=== PATIENT | female | born 1980 | race Caucasian/White ===

== ENCOUNTER 2017-07-19 15:18 | Emergency (ER) | payer OTHER, MEDICAID ==
[2017-07-19 15:57] LABS: ADD MAN DIFF? NO
[2017-07-19 15:59] LABS: BASO # 0.1 x10^3/uL (0.0-0.2); BASO % 1 % (0-3); EOS # 0.3 x10^3/uL (0.0-0.7); EOS % 3 % (0-3); HEMATOCRIT 42.6 % (36.0-47.0); HEMOGLOBIN 14.1 g/dL (12.0-15.5); LYMPH # 3.6 x10^3/uL (1.0-4.8); LYMPH % 33 % (24-48); MEAN CORPUSCULAR HEMOGLOBIN 29 pg (25-35); MEAN CORPUSCULAR HGB CONC 33 g/dL (31-37); MEAN CORPUSCULAR VOLUME 88 fL (79-100); MONO # 0.9 x10^3/uL (0.0-1.1); MONO % 9 % (0-9); NEUT # 5.9 x10^3uL (1.8-7.7); NEUT % 55 % (31-73); PLATELET COUNT 337 x10^3/uL (140-400); RED BLOOD COUNT 4.85 x10^6/uL (3.50-5.40); RED CELL DISTRIBUTION WIDTH 14.1 % (11.5-14.5); WHITE BLOOD COUNT 10.9 x10^3/uL (4.0-11.0)
[2017-07-19] MEDS: fentaNYL PF VIAL 100 MCG/2 ML VIAL IV ×2 (16:09)
[2017-07-19] MEDS: ONDANSETRON PF 4 MG/2 ML VIAL. IV ×2 (16:09)
[2017-07-19] MEDS: ASPIRIN CHEWABLE 81 MG TABLET. PO ×2 (16:10)
[2017-07-19 16:13] LABS: ANION GAP 6 (6-14); BLOOD UREA NITROGEN 5 mg/dL (7-20); BUN/CREATININE RATIO 7 (6-20); CALCIUM 8.7 mg/dL (8.5-10.1); CARBON DIOXIDE 30 mmol/L (21-32); CHLORIDE 103 mmol/L (98-107); CREATININE 0.7 mg/dL (0.6-1.0); GFR 93.2; GLUCOSE 108 mg/dL (70-99); POTASSIUM 3.8 mmol/L (3.5-5.1); SODIUM 139 mmol/L (136-145)
[2017-07-19 16:19] LABS: ALBUMIN/GLOBULIN RATIO 0.7 (1.0-1.7); ALK PHOS 84 U/L (46-116); ALT (SGPT) 35 U/L (14-59); AST (SGOT) 36 U/L (15-37); MAGNESIUM 1.9 mg/dL (1.8-2.4); TOTAL BILIRUBIN 0.2 mg/dL (0.2-1.0); TOTAL PROTEIN 7.4 g/dL (6.4-8.2)
[2017-07-19] MEDS: IV NORMAL SALINE 1000ML BAG 1,000 ML IV ×2 (16:22)
[2017-07-19 16:25] LABS: TROPONINI < 0.017 ng/mL (0.000-0.055)
[2017-07-19 16:26] LABS: BILIRUBIN,URINE NEGATIVE (NEG); CLARITY,URINE CLOUDY; COLOR,URINE YELLOW; GLUCOSE,URINE NEGATIVE (NEG); NITRITE,URINE NEGATIVE (NEG); PH,URINE 5.5; PROTEIN,URINE NEGATIVE (NEG-TRACE); UROBILINOGEN,URINE 0.2 mg/dL (0.2 mg/dL)
[2017-07-19 16:27] LABS: NT-PRO BNP 22 pg/mL (0-124)
[2017-07-19 16:27] LABS: CKMB MASS < 0.5 ng/mL (0.0-3.6); CREATINE KINASE 48 U/L (26-192)
[2017-07-19 16:37] LABS: BACTERIA,URINE FEW /HPF (0-FEW); RBC,URINE 0 /HPF (0-2); SQUAMOUS EPITHELIAL CELL,UR MANY /LPF
[2017-07-19 17:10] LABS: URINE HCG POC HCG NEGATIVE (Negative)
== END 2017-07-19 17:48 | disposition home or self-care (01) ==
LOC: ER 15:18
DX: R07.89 Other chest pain (principal); R10.9 Unspecified abdominal pain; M54.89 Other dorsalgia; I10 Essential (primary) hypertension; E11.9 Type 2 diabetes mellitus without complications; J45.909 Unspecified asthma, uncomplicated; M10.9 Gout, unspecified; Z90.49 Acquired absence of other specified parts of digestive tract; Z79.82 Long term (current) use of aspirin; Z88.5 Allergy status to narcotic agent; Z91.040 Latex allergy status
CPT/HCPCS: 36415; 71046; 80053; 81001; 81025; 82553; 83735; 83880; 84484; 85025; 87086; 87186; 93005; 96361; 96374; 96375; 99285-25; J2405; J3010; J7030

== ENCOUNTER 2018-07-18 19:48 | Emergency (ER) | payer OTHER ==
[~2018-07-18] VITALS: Ht 167.6 cm; Wt 182.3 kg
[~2018-07-18 19:48] MED LIST: ALBU2.5V5 NEB; ALLO100T PO; ASPI-630 PO; CHOL10002 PO; CIPR500T PO; CYCL10TA2 PO; HYDR-2678 PO; HYDR-2769 PO; IBUP-1007 PO; INDO25CA5 PO; LISI-334 PO; METF10007 PO; METO25TA4 PO; NAPR-683 PO
--- NOTE | 2018-07-18 20:14 | PHYS DOC ---
Past Medical History Past Medical History: Asthma, Diabetes-Type II, Hypertension, Other Additional Past Medical Histor: Gout (EUNICE ROSARIO APRN) Past Surgical History: Cholecystectomy (EUNICE ROSARIO APRN) Alcohol Use: None Drug Use: None (EUNICE ROSARIO APRN) Adult General Chief Complaint Chief Complaint: CHEST WALL PAIN HPI HPI 38 y/o female presents to ER via EMS for c/o 5 days hx of N/V and 2 day hx of lt side CP. She reports today she has vomited 4 times. She denies diarrhea reporting she had reg. BM today. She denies fever, urinary sxs, or palpitations. Pt reports her chest pain radiates into lt arm causing lt arm tingling. She denies SOA, diaphoresis, or back/neck pain. (EUNICE ROSARIO APRN) Review of Systems Review of Systems Constitutional: Denies fever or chills [] Eyes: Denies change in visual acuity, redness, or eye pain [] HENT: Denies nasal congestion or sore throat [] Respiratory: Denies cough or shortness of breath [] Cardiovascular: Reports lt side CP into lt arm GI: Denies abdominal pain. Reports N/V/D : Denies dysuria or hematuria [] Musculoskeletal: Denies back/neck pain. Reports lt arm tingling Integument: Denies rash or skin lesions [] Neurologic: Denies headache, focal weakness or sensory changes [] Endocrine: Denies polyuria or polydipsia [] All other systems were reviewed and found to be within normal limits, except as documented in this note. (EUNICE ROSARIO APRN) Current Medications Current Medications Current Medications Medications (Trade) Dose Ordered Sig/Jalyn Start Time Stop Time Status Last Admin Dose Admin Ondansetron HCl (Zofran) 4 mg 1X ONCE 07/18/18 20:15 07/18/18 20:16 DC 07/18/18 20:40 4 MG Sodium Chloride 1,000 ml @ 1,000 mls/hr 1X ONCE 07/18/18 20:15 07/18/18 21:14 DC 07/18/18 20:40 1,000 MLS/HR (TAQUERIA PATEL MD) Allergies Allergies Allergies Coded Allergies Type Severity Reaction Last Updated Verified Latex, Natural Rubber Allergy Intermediate Rash 04/03/16 Yes oxycodone Allergy Intermediate Hives 04/03/16 Yes (TAQUERIA PATEL MD) Physical Exam Physical Exam Constitutional: Well developed, well nourished, no acute distress, non-toxic appearance. Steady unassisted gait from EMS to Rm 17 HENT: Normocephalic, atraumatic, oropharynx moist, nose normal. [] Eyes: Pupils equal, conjunctiva normal, no discharge. [] Neck: Normal range of motion, no tenderness, supple, no stridor. [] Cardiovascular: Heart rate regular rhythm, no murmur [] Lungs & Thorax: Bilateral breath sounds clear to auscultation. Resp. equal/ nonlabored. Lt upper chest pain is reproducible on palp. no crepitus Abdomen: Bowel sounds normal, soft- obese, no tenderness Skin: Warm, dry, no erythema, no rash. [] Back: No tenderness, no CVA tenderness. [] Extremities: No tenderness, no cyanosis, no clubbing, ROM intact, 1-2+ nonpitting bilat. pedal edema Neurologic: Alert and oriented X 3, normal motor function, normal sensory function, no focal deficits noted. [] Psychologic: Affect normal, judgement normal, mood normal. [] (REFFITT,EUNICE Freeman APRN) Current Patient Data Lab Values Laboratory Tests Test 07/18/18 20:10 07/18/18 21:05 07/18/18 21:11 White Blood Count 11.1 x10^3/uL (4.0-11.0) H Red Blood Count 4.62 x10^6/uL (3.50-5.40) Hemoglobin 12.9 g/dL (12.0-15.5) Hematocrit 39.6 % (36.0-47.0) Mean Corpuscular Volume 86 fL (79-100) Mean Corpuscular Hemoglobin 28 pg (25-35) Mean Corpuscular Hemoglobin Concent 32 g/dL (31-37) Red Cell Distribution Width 13.6 % (11.5-14.5) Platelet Count 317 x10^3/uL (140-400) Neutrophils (%) (Auto) 54 % (31-73) Lymphocytes (%) (Auto) 35 % (24-48) Monocytes (%) (Auto) 8 % (0-9) Eosinophils (%) (Auto) 2 % (0-3) Basophils (%) (Auto) 1 % (0-3) Neutrophils # (Auto) 6.0 x10^3uL (1.8-7.7) Lymphocytes # (Auto) 3.9 x10^3/uL (1.0-4.8) Monocytes # (Auto) 0.9 x10^3/uL (0.0-1.1) Eosinophils # (Auto) 0.2 x10^3/uL (0.0-0.7) Basophils # (Auto) 0.1 x10^3/uL (0.0-0.2) Sodium Level 143 mmol/L (136-145) Potassium Level 4.5 mmol/L (3.5-5.1) Chloride Level 107 mmol/L (98-107) Carbon Dioxide Level 29 mmol/L (21-32) Anion Gap 7 (6-14) Blood Urea Nitrogen 7 mg/dL (7-20) Creatinine 0.8 mg/dL (0.6-1.0) Estimated GFR (Cockcroft-Gault) 79.4 BUN/Creatinine Ratio 9 (6-20) Glucose Level 118 mg/dL (70-99) H Calcium Level 8.2 mg/dL (8.5-10.1) L Magnesium Level 2.0 mg/dL (1.8-2.4) Total Bilirubin 0.2 mg/dL (0.2-1.0) Aspartate Amino Transferase (AST) 15 U/L (15-37) Alanine Aminotransferase (ALT) 19 U/L (14-59) Alkaline Phosphatase 110 U/L (46-116) Troponin I Quantitative 0.019 ng/mL (0.000-0.055) Total Protein 6.8 g/dL (6.4-8.2) Albumin 2.7 g/dL (3.4-5.0) L Albumin/Globulin Ratio 0.7 (1.0-1.7) L Lipase 165 U/L (73-393) Urine Collection Type Unknown Urine Color Yellow Urine Clarity Clear Urine pH 6.0 Urine Specific [place] 1.010 Urine Protein Negative mg/dL (NEG-TRACE) Urine Glucose (UA) Negative mg/dL (NEG) Urine Ketones (Stick) Negative mg/dL (NEG) Urine Blood Negative (NEG) Urine Nitrite Positive (NEG) Urine Bilirubin Negative (NEG) Urine Urobilinogen Dipstick 0.2 mg/dL (0.2 mg/dL) Urine Leukocyte Esterase Negative (NEG) Urine RBC 0 /HPF (0-2) Urine WBC 5-10 /HPF (0-4) Urine Squamous Epithelial Cells Few /LPF Urine Bacteria Many /HPF (0-FEW) Urine Mucus Slight /LPF POC Urine HCG, Qualitative Hcg negative (Negative) Laboratory Tests 07/18/18 20:10 Laboratory Tests 07/18/18 20:10 Microbiology 07/18/18 Urine Culture - Final, Complete 07/18/18 Urine Culture Result 1 (MICHELET) - Final, Complete 07/18/18 Antimicrobic Susceptibility - Final, Complete (TAQUERIA PATEL MD) Lab Values Microbiology 07/18/18 Urine Culture - Final, Complete 07/18/18 Urine Culture Result 1 (MICHELET) - Final, Complete 07/18/18 Antimicrobic Susceptibility - Final, Complete (EUNICE ROSARIO APRN) EKG EKG EKG obtained 07/18/18 at [address] Patel Sinus rhythm Rate 92 No STEMI (EUNICE ROSARIO APRN) Radiology/Procedures Radiology/Procedures [] (EUNICE ROSARIO APRN) Course & Med Decision Making Course & Med Decision Making Pertinent Labs and Imaging studies reviewed. (See chart for details) 2134: Discussed pt's case and plan of care with Dr. Patel who viewed pt's xray- no obvious acute findings. Pt's heart score is 2- with risk factors. Pt reported her CP has been going on for 2 days. EKG obtained in ER today with no acute ST elevation/STEMI and troponin was 0.019; Labs were similar to previous results in pt's records Ca 8.2 which in her records this appears to be chronic. Neg. UCG. UA was positive nitrates with 5-10 WBCs on micro neg. ketones. Will provide Rx for Keflex. Pt has had no active vomiting while in ER and was provided with IV flds/dose of Zofran. Discussed plans for home discharge with pt to f/u with her PCP tomorrow for re-evaluation and further care. Will provide with Rx of Zofran ODT. At time of discharge discussion pt was in no visible distress and is comfortable with discharge plan. (EUNICE ROSARIO APRN) Course & Med Decision Making Staff Physician Addendum: I was working in the ER during the course of this patient's visit. I was available for consultation as needed, but I was not directly involved in the care of this patient. (TAQUERIA PATEL MD) Dragon Disclaimer Dragon Disclaimer This electronic medical record was generated, in whole or in part, using a voice recognition dictation system. (EUNICE ROSARIO APRN) Departure Departure Impression: Primary Impression: Chest pain Additional Impression: UTI (urinary tract infection) Disposition: HOME, SELF-CARE Condition: STABLE Referrals: IGOR HAMPTON MD (PCP) Patient Instructions: Chest Pain (Nonspecific), Nausea and Vomiting, Urinary Tract Infection Additional Instructions: Drink plenty of fluids to stay hydrated. Tylenol and or ibuprofen as needed for pain as directed on container. Follow-up with your doctor tomorrow for re-evaluation and further care. Scripts Ondansetron (ONDANSETRON ODT) 4 Mg Tab.rapdis 1 TAB PO PRN Q6-8HRS PRN for NAUSEA, #8 TAB 0 Refills Prov: EUNICE ROSARIO APRN 07/18/18 Cephalexin (KEFLEX) 500 Mg Capsule 1 CAP PO BID, #14 CAP 0 Refills Prov: EUNICE ROSARIO APRN 07/18/18 Problem Qualifiers EUNICE ROSARIO APRN Jul 18, 2018 20:14 TAQUERIA PATEL MD Sep 19, 2018 05:49
[2018-07-18] MEDS ORDERED: IV NORMAL SALINE 1000ML BAG 1,000 ML IV ONE (20:15)
[2018-07-18] MEDS ORDERED: ONDANSETRON PF 4 MG/2 ML VIAL. IV ONE (20:15)
[2018-07-18 20:23] LABS: BASO # 0.1 x10^3/uL (0.0-0.2); BASO % 1 % (0-3); EOS # 0.2 x10^3/uL (0.0-0.7); EOS % 2 % (0-3); HEMATOCRIT 39.6 % (36.0-47.0); HEMOGLOBIN 12.9 g/dL (12.0-15.5); LYMPH # 3.9 x10^3/uL (1.0-4.8); LYMPH % 35 % (24-48); MEAN CORPUSCULAR HEMOGLOBIN 28 pg (25-35); MEAN CORPUSCULAR HGB CONC 32 g/dL (31-37); MEAN CORPUSCULAR VOLUME 86 fL (79-100); MONO # 0.9 x10^3/uL (0.0-1.1); MONO % 8 % (0-9); NEUT % 54 % (31-73); PLATELET COUNT 317 x10^3/uL (140-400); RED BLOOD COUNT 4.62 x10^6/uL (3.50-5.40); RED CELL DISTRIBUTION WIDTH 13.6 % (11.5-14.5); WHITE BLOOD COUNT 11.1 x10^3/uL (4.0-11.0)
[2018-07-18 20:31] LABS: CALCIUM 8.2 mg/dL (8.5-10.1); CREATININE 0.8 mg/dL (0.6-1.0); GFR 79.4; POTASSIUM 4.5 mmol/L (3.5-5.1)
[2018-07-18 20:37] LABS: ALBUMIN 2.7 g/dL (3.4-5.0); ALBUMIN/GLOBULIN RATIO 0.7 (1.0-1.7); TOTAL BILIRUBIN 0.2 mg/dL (0.2-1.0); TOTAL PROTEIN 6.8 g/dL (6.4-8.2)
[2018-07-18 21:07] VITALS: BP 107/54
[2018-07-18 21:16] LABS: BILIRUBIN,URINE NEGATIVE (NEG); CLARITY,URINE CLEAR; COLOR,URINE YELLOW; NITRITE,URINE POSITIVE (NEG); PROTEIN,URINE NEGATIVE (NEG-TRACE); UROBILINOGEN,URINE 0.2 mg/dL (0.2 mg/dL)
[2018-07-18 21:27] LABS: BACTERIA,URINE MANY /HPF (0-FEW); RBC,URINE 0 /HPF (0-2); SQUAMOUS EPITHELIAL CELL,UR FEW /LPF
[2018-07-18] MEDS ORDERED: ONDA4TAB12 PO (21:45)
[2018-07-18] MEDS ORDERED: CEPH-264 PO (21:45)
--- NOTE | 2018-07-18 23:18 | RAD ---
PA and lateral chest radiographs 07/18/2018 CLINICAL HISTORY: Left-sided chest pain. PA and lateral digital radiographs of the chest were obtained. Comparison study is dated 07/19/2017. The cardiac and mediastinal silhouettes are within normal limits in size and configuration. No acute pulmonary infiltrate is seen. No pleural effusion or pneumothorax is noted. Mild degenerative changes are seen involving the thoracic spine. IMPRESSION: No acute abnormality is seen. Electronically signed by: Vipin Del Rosario MD (07/18/2018 11:15 PM) [facility]
--- NOTE | 2018-07-19 08:12 | EKG ---
[facility] [address] [place] [address] Test Date: 2018-07-18 Test Time: 19:53:10 Pat Name: CARINE DELACRUZ Department: Room: Gender: Sales Administration Manager: : 1980 Requested By: EUNICE ROSARIO Order Number: [id number] Reading MD: Pratik Meza Measurements Intervals [place] Rate: P: ME: QRS: QRSD: T: QT: QTc: Interpretive Statements Compared to ECG 07/19/2017 15:30:38 No significant changes Electronically Signed On 07-20-2018 9:09:40 BUSINESS REPORTING DEVELOPER by Pratik Meza
== END 2018-07-18 22:06 | disposition home or self-care (01) ==
LOC: ER 19:48
DX: R07.89 Other chest pain (principal); N39.0 Urinary tract infection, site not specified; J45.909 Unspecified asthma, uncomplicated; E11.9 Type 2 diabetes mellitus without complications; I10 Essential (primary) hypertension; R19.7 Diarrhea, unspecified; Z91.040 Latex allergy status; Z88.5 Allergy status to narcotic agent
CPT/HCPCS: 36415; 71046; 80053; 81001; 81025; 83690; 83735; 84484; 85025; 87086; 93005; 96361; 96374; 99284; J2405; J7030; 87186

== ENCOUNTER 2019-04-03 08:28 | Inpatient (IN) | payer OTHER ==
[~2019-04-03] VITALS: Ht 167.6 cm; Wt 173.0 kg
[~2019-04-03 08:28] MED LIST changes: +CEPH-264 PO; +INDO25CA21 PO; -INDO25CA5 PO; +ONDA4TAB12 PO
[2019-04-03] MEDS ORDERED: IV NORMAL SALINE 1000ML BAG 1,000 ML IV SCH (08:52)
--- NOTE | 2019-04-03 08:57 | PHYS DOC ---
Past Medical History Past Medical History: Asthma, Diabetes-Type II, Hypertension, Other Additional Past Medical Histor: Gout, obesity Past Surgical History: Cholecystectomy Alcohol Use: None Drug Use: None Adult General Chief Complaint Chief Complaint: DIFFICULTY SWALLOWING HPI HPI Patient is a 39-year-old female who presents to the emergency department for evaluation. She was seen at a [facility] 2 days ago for right-sided face/"dental" pain, underwent a physical exam, and was prescribed amoxicillin 450 mg 3 times a day. She states that for the past 2 days she has been unable to swallow because doing so causes increased pain. She describes the pain is the right side of her face and neck area. She has had a low-grade fever. She denies any headache or neck stiffness per se, and has not had any abdominal pain, chest pain, diarrhea, vision changes or mental status changes, numbness, weakness. Palpation of the right side of her face, movement of her neck, and swallowing worsen her pain. There are no alleviating factors to her symptoms. Review of Systems Review of Systems Constitutional: Denies lethargy or chills [] Eyes: Denies change in visual acuity, redness, or eye pain [] HENT: Denies nasal congestion or sore throat. Does report some right-sided neck pain. [] Respiratory: Denies cough or shortness of breath [] Cardiovascular: The patient denies any shortness of breath, chest pain, palpitations, or orthopnea [] GI: Denies abdominal pain, bloody stools or diarrhea [] : Denies dysuria or hematuria [] Musculoskeletal: Denies back pain or joint pain [] Integument: Denies rash or skin lesions [] Neurologic: Denies headache, focal weakness or sensory changes [] Endocrine: Denies polyuria or polydipsia [] All other systems were reviewed and found to be within normal limits, except as documented in this note. Current Medications Current Medications Current Medications Medications (Trade) Dose Ordered Sig/Jalyn Start Time Stop Time Status Last Admin Dose Admin Info (CONTRAST GIVEN -- Rx MONITORING) 1 each PRN DAILY PRN 04/03/19 09:30 04/05/19 09:29 Iohexol (Omnipaque 300 Mg/ml) 70 ml 1X ONCE 04/03/19 09:30 04/03/19 09:31 DC 04/03/19 09:30 70 ML Sodium Chloride 1,000 ml @ 100 mls/hr Q10H 04/03/19 08:52 04/03/19 18:51 04/03/19 10:20 100 MLS/HR Allergies Allergies Allergies Coded Allergies Type Severity Reaction Last Updated Verified Latex, Natural Rubber Allergy Intermediate Rash 04/03/16 Yes oxycodone Allergy Intermediate Hives 04/03/16 Yes Physical Exam Physical Exam PHYSICAL EXAM: CONSTITUTIONAL: Well developed, well nourished HEAD: normocephalic, atraumatic EENT: PERRL, EOMI. Conjunctivae normal color, sclerae non-icteric; moist mucous membranes. The oropharynx is nonerythematous, there is no uvular deviation or exudate. Dentition is intact. There is no trismus. NECK: There is an approximately 6 x 6 cm firm, tender mass in the right submandibular/superior neck soft tissues, which is the focus of the patient's pain. The anterior larynx is nontender. There is no stridor. Voice is normal. LUNGS: Lungs CTA, breathing even and unlabored. Normal air movement. HEART: Regular rate and rhythm, no murmur CHEST: No deformity; non-tender ABDOMEN: The abdomen is soft, and non-tender, no masses or bruits. EXTREM: Normal ROM; no deformity, no calf tenderness. Normal pulses palpable in all extremities. There is no pedal edema. SKIN: No rash; no diaphoresis NEURO: Alert; normal speech and cognition; CN's grossly intact; strength grossly intact without focal deficit. BACK: No CVA TTP. Current Patient Data Vital Signs Vital Signs Date Time Temp Pulse Resp B/P (MAP) Pulse Ox O2 Delivery O2 Flow Rate FiO2 04/03/19 08:40 99.2 106 18 136/72 (93) 96 Room Air 99.2 Lab Values Laboratory Tests Test 04/03/19 08:58 White Blood Count 9.7 x10^3/uL (4.0-11.0) Red Blood Count 4.88 x10^6/uL (3.50-5.40) Hemoglobin 13.9 g/dL (12.0-15.5) Hematocrit 42.0 % (36.0-47.0) Mean Corpuscular Volume 86 fL (79-100) Mean Corpuscular Hemoglobin 29 pg (25-35) Mean Corpuscular Hemoglobin Concent 33 g/dL (31-37) Red Cell Distribution Width 13.5 % (11.5-14.5) Platelet Count 310 x10^3/uL (140-400) Neutrophils (%) (Auto) 58 % (31-73) Lymphocytes (%) (Auto) 24 % (24-48) Monocytes (%) (Auto) 15 % (0-9) H Eosinophils (%) (Auto) 2 % (0-3) Basophils (%) (Auto) 1 % (0-3) Neutrophils # (Auto) 5.7 x10^3/uL (1.8-7.7) Lymphocytes # (Auto) 2.3 x10^3/uL (1.0-4.8) Monocytes # (Auto) 1.5 x10^3/uL (0.0-1.1) H Eosinophils # (Auto) 0.2 x10^3/uL (0.0-0.7) Basophils # (Auto) 0.1 x10^3/uL (0.0-0.2) Sodium Level 138 mmol/L (136-145) Potassium Level 3.9 mmol/L (3.5-5.1) Chloride Level 102 mmol/L (98-107) Carbon Dioxide Level 27 mmol/L (21-32) Anion Gap 9 (6-14) Blood Urea Nitrogen 8 mg/dL (7-20) Creatinine 0.8 mg/dL (0.6-1.0) Estimated GFR (Cockcroft-Gault) 79.0 BUN/Creatinine Ratio 10 (6-20) Glucose Level 112 mg/dL (70-99) H Lactic Acid Level 1.3 mmol/L (0.4-2.0) Calcium Level 8.3 mg/dL (8.5-10.1) L Total Bilirubin 0.6 mg/dL (0.2-1.0) Aspartate Amino Transferase (AST) 22 U/L (15-37) Alanine Aminotransferase (ALT) 20 U/L (14-59) Alkaline Phosphatase 112 U/L (46-116) Total Protein 8.0 g/dL (6.4-8.2) Albumin 2.8 g/dL (3.4-5.0) L Albumin/Globulin Ratio 0.5 (1.0-1.7) L Laboratory Tests 04/03/19 08:58 Laboratory Tests 04/03/19 08:58 EKG EKG [] Radiology/Procedures Radiology/Procedures PROCEDURE: CT SOFT TISSUE NECK W/CONTRAST CT scan of the neck with contrast 09/17/2018 CLINICAL HISTORY: Fever, sore throat, difficulty swallowing. Painful right neck mass. TECHNIQUE: After the intravenous administration of 70 cc of Omnipaque 300, contiguous, 3 mm axial sections were obtained through the neck. One or more of the following individualized dose reduction techniques were utilized for this study: 1. Automated exposure control. 2. Adjustment of the mA and/or kV according to patient size. 3. Use of iterative reconstruction technique. FINDINGS: The palatine and adenoid tonsils are enlarged. Diffuse mucosal thickening of the mucosal structures of the posterior oropharynx and hypopharynx are seen consistent with the patient's history of a pharyngitis. Enlarged lymph nodes are seen throughout the neck, right greater than left. These measure 1 to 2 cm in size. An oval-shaped mass is seen within the right neck immediately anterior to the right internal jugular vein, lateral to the right internal carotid artery, posterior to the right submandibular gland and medial to the right sternocleidomastoid muscle which measures 7.2 x 3.7 x 2.8 cm in craniocaudal, AP and transverse dimensions. This is felt to most likely represent a conglomerate matted mass of lymph nodes. Low-attenuation areas are seen within this mass which measure 9 mm to 2 cm in size which are felt to represent areas of abscess formation. No additional mass is seen. Edema is seen throughout the soft tissues of the right neck. The parotid glands are enlarged fatty replaced. The submandibular glands are within normal limits. The thyroid gland is within normal limits. Mild mucosal thickening is seen involving both maxillary sinuses. A 1.8 cm mucous retention cyst is seen involving left maxillary sinus. Degenerative changes are seen involving the uncovertebral and facet joints throughout the mid and lower cervical disc spaces. IMPRESSION: 7.2 cm oval-shaped mass is seen within the right neck which is felt to most likely represent a conglomerate matted mass of lymph nodes consistent with cervical adenitis. Low-attenuation areas are seen within it which likely represent small abscesses as discussed above.[] Course & Med Decision Making Course & Med Decision Making Pertinent Labs and Imaging studies reviewed. (See chart for details) [] The patient's condition remains stable at this time. I spoke with Dr. Chahal, hospitalist, who will admit the patient for further treatment, with IV antibiotics, as the patient has not been tolerant to by mouth antibiotics. I have also paged Dr. Adrianna Arshad, who is listed as on-call for ENT. Dragon Disclaimer Dragon Disclaimer This electronic medical record was generated, in whole or in part, using a voice recognition dictation system. Departure Departure Impression: Primary Impression: Neck abscess Additional Impression: Lymphadenopathy Disposition: 09 ADMITTED INPATIENT Admitting Physician: STEPHANI Condition: STABLE Referrals: IGOR HAMPTON MD (PCP) Problem Qualifiers JAMES HYMAN MD Apr 03, 2019 08:57
[2019-04-03 09:23] LABS: BASO # 0.1 x10^3/uL (0.0-0.2); BASO % 1 % (0-3); EOS # 0.2 x10^3/uL (0.0-0.7); EOS % 2 % (0-3); HEMOGLOBIN 13.9 g/dL (12.0-15.5); LYMPH # 2.3 x10^3/uL (1.0-4.8); LYMPH % 24 % (24-48); MEAN CORPUSCULAR HEMOGLOBIN 29 pg (25-35); MEAN CORPUSCULAR HGB CONC 33 g/dL (31-37); MEAN CORPUSCULAR VOLUME 86 fL (79-100); MONO # 1.5 x10^3/uL (0.0-1.1); MONO % 15 % (0-9); NEUT # 5.7 x10^3/uL (1.8-7.7); NEUT % 58 % (31-73); PLATELET COUNT 310 x10^3/uL (140-400); RED BLOOD COUNT 4.88 x10^6/uL (3.50-5.40); RED CELL DISTRIBUTION WIDTH 13.5 % (11.5-14.5); WHITE BLOOD COUNT 9.7 x10^3/uL (4.0-11.0)
[2019-04-03] MEDS ORDERED: CONTRAST GIVEN. MC PRN (09:30)
[2019-04-03] MEDS ORDERED: IOHEXOL 300 MG/ML 100ML VIAL. IV ONE (09:30)
[2019-04-03 09:38] LABS: CALCIUM 8.3 mg/dL (8.5-10.1); CREATININE 0.8 mg/dL (0.6-1.0); POTASSIUM 3.9 mmol/L (3.5-5.1)
[2019-04-03 09:46] LABS: ALBUMIN 2.8 g/dL (3.4-5.0); ALBUMIN/GLOBULIN RATIO 0.5 (1.0-1.7); TOTAL BILIRUBIN 0.6 mg/dL (0.2-1.0)
--- NOTE | 2019-04-03 10:43 | RAD ---
CT scan of the neck with contrast 09/17/2018 CLINICAL HISTORY: Fever, sore throat, difficulty swallowing. Painful right neck mass. TECHNIQUE: After the intravenous administration of 70 cc of Omnipaque 300, contiguous, 3 mm axial sections were obtained through the neck. One or more of the following individualized dose reduction techniques were utilized for this study: 1. Automated exposure control. 2. Adjustment of the mA and/or kV according to patient size. 3. Use of iterative reconstruction technique. FINDINGS: The palatine and adenoid tonsils are enlarged. Diffuse mucosal thickening of the mucosal structures of the posterior oropharynx and hypopharynx are seen consistent with the patient's history of a pharyngitis. Enlarged lymph nodes are seen throughout the neck, right greater than left. These measure 1 to 2 cm in size. An oval-shaped mass is seen within the right neck immediately anterior to the right internal jugular vein, lateral to the right internal carotid artery, posterior to the right submandibular gland and medial to the right sternocleidomastoid muscle which measures 7.2 x 3.7 x 2.8 cm in craniocaudal, AP and transverse dimensions. This is felt to most likely represent a conglomerate matted mass of lymph nodes. Low-attenuation areas are seen within this mass which measure 9 mm to 2 cm in size which are felt to represent areas of abscess formation. No additional mass is seen. Edema is seen throughout the soft tissues of the right neck. The parotid glands are enlarged fatty replaced. The submandibular glands are within normal limits. The thyroid gland is within normal limits. Mild mucosal thickening is seen involving both maxillary sinuses. A 1.8 cm mucous retention cyst is seen involving left maxillary sinus. Degenerative changes are seen involving the uncovertebral and facet joints throughout the mid and lower cervical disc spaces. IMPRESSION: 7.2 cm oval-shaped mass is seen within the right neck which is felt to most likely represent a conglomerate matted mass of lymph nodes consistent with cervical adenitis. Low-attenuation areas are seen within it which likely represent small abscesses as discussed above. Electronically signed by: Vipin Del Rosario MD (04/03/2019 10:40 AM) [id number]
[2019-04-03] MEDS ORDERED: CYCLOBENZAPRINE 10 MG TABLET. PO PRN (11:15)
[2019-04-03] MEDS ORDERED: fentaNYL PF VIAL 100 MCG/2 ML VIAL IVP PRN (11:15)
[2019-04-03] MEDS ORDERED: traMADol 50 MG TABLET PO PRN (11:15)
[2019-04-03] MEDS ORDERED: ACETAMINOPHEN 500 MG TABLET PO PRN (11:15)
[2019-04-03] MEDS ORDERED: CALCIUM CARBONATE 500 MG TAB.CHEW PO PRN (11:15)
[2019-04-03] MEDS ORDERED: LIDOCAINE 2% VISCOUS 15 ML SOLUTION. SWSW PRN (11:15)
[2019-04-03] MEDS ORDERED: ZOLPIDEM 5 MG TABLET. PO PRN (11:15)
[2019-04-03] MEDS ORDERED: BENZOCAINE/MENTHOL LOZENGE. PO PRN (11:15)
[2019-04-03] MEDS ORDERED: IV NORMAL SALINE 1000ML BAG 1,000 ML IV ONE (11:15)
[2019-04-03] MEDS ORDERED: ONDANSETRON PF 4 MG/2 ML VIAL. IVP PRN (11:15)
[2019-04-03] MEDS ORDERED: NAPROXEN 500 MG TABLET PO PRN (11:15)
[2019-04-03] MEDS ORDERED: INDOMETHACIN 25 MG CAPSULE. PO PRN (11:15)
[2019-04-03] MEDS ORDERED: HYDROcodone/APAP 5/325MG 1 TAB TABLET PO PRN (11:15)
[2019-04-03 11:22] LABS: MONONUCLEOSIS PATIENT NEGATIVE (NEGATIVE)
[2019-04-03] MEDS: ALBUTEROL SULFATE 2.5 MG/3 ML NEBU. NEB SCH ×3 (11:43→19:56)
--- NOTE | 2019-04-03 11:57 | PDOC1 ---
History and Physical Date of Admission Date of Admission DATE: 04/03/19 TIME: 11:50 Identification/Chief Complaint Chief Complaint rt neck swelling and pain and hard to swallow pills Source Source: Caregiver, Chart review, Patient History of Present Illness History of Present Illness 6 day hx of rt neck swelling and pain, fevers at home, no recent ill contacts, claims recent infected wisdom tooth (needs to be extracted still by dentist), worse so went to [facility] over the weekend, dcd on PO clinda but swelling worse CANT swallow pills so went to ER today fast track,., CT shows diffuse matting of enlarged LNs, greatest diam measuring 7 cms, most prominent on RT neck, she is morbidly obese BMI 66, so far heterophil antibodies and strep neg, WBC 9.7 VERy tender to palpation of neck, warm, red, swollen, I agree with admission, IV abx, decadron, GI soft diet, Ok to cont home meds if she can swallow pills, CLInda IV< saline FULL CODE seen at ER She is DM but claims good BS control at home Past Medical History Cardiovascular: HTN Endocrine: Diabetes, Other Past Surgical History Past Surgical History: No pertinent history Family History Family History: Coronary Artery Disease Social History Smoke: No ALCOHOL: none Drugs: None Current Problem List Problem List Problems Medical Problems: (1) Lymphadenopathy Status: Acute (2) Neck abscess Status: Acute Current Medications Current Medications Current Medications Sodium Chloride 1,000 ml @ 100 mls/hr Q10H IV Last administered on 04/03/19at 10:20; Start 04/03/19 at 08:52; Stop 04/03/19 at 18:51 Iohexol (Omnipaque 300 Mg/ml) 70 ml 1X ONCE IV Last administered on 04/03/19at 09:30; Start 04/03/19 at 09:30; Stop 04/03/19 at 09:31; Status DC Info (CONTRAST GIVEN -- Rx MONITORING) 1 each PRN DAILY PRN MC SEE COMMENTS; Start 04/03/19 at 09:30; Stop 04/05/19 at 09:29 Throat Lozenges (Cepacol Sore Throat Lozenge) 1 drew PRN Q2HRS PRN PO SORE THROAT; Start 04/03/19 at 11:15 Ondansetron HCl (Zofran) 4 mg PRN Q6HRS PRN IVP NAUSEA/VOMITING; Start 04/03/19 at 11:15 Lidocaine HCl (Viscous Lidocaine) 15 ml PRN Q4HRS PRN SWSW MOUTH PAIN; Start 04/03/19 at 11:15 Calcium Carbonate/ Glycine (Tums) 500 mg PRN AFTMEALHC PRN PO INDIGESTION; Start 04/03/19 at 11:15 Pantoprazole Sodium (Protonix) 40 mg DAILYAC PO ; Start 04/04/19 at 07:30 Zolpidem Tartrate (Ambien) 5 mg PRN QHS PRN PO INSOMNIA, MAY REPEAT IN 1HR; Start 04/03/19 at 11:15 Acetaminophen (Tylenol) 500 mg PRN Q6HRS PRN PO MILD PAIN / TEMP; Start 04/03/19 at 11:15 Tramadol HCl (Ultram) 50 mg PRN Q6HRS PRN PO MILD TO MODERATE PAIN; Start 04/03/19 at 11:15 Fentanyl Citrate (Fentanyl 2ml Vial) 50 mcg PRN Q2HR PRN IVP PAIN; Start 04/03/19 at 11:15 Albuterol Sulfate (Ventolin Neb Soln) 2.5 mg RTQID NEB Last administered on 04/03/19at 11:43; Start 04/03/19 at 12:00 Allopurinol (Zyloprim) 200 mg DAILY PO ; Start 04/04/19 at 09:00 Aspirin (Children'S Aspirin) 81 mg DAILY PO ; Start 04/04/19 at 09:00 Vitamin D (Vitamin D3) 1,000 unit DAILY PO ; Start 04/04/19 at 09:00 Cyclobenzaprine HCl (Flexeril) 10 mg PRN TID PRN PO MUSCLE PAIN; Start 04/03/19 at 11:15 Acetaminophen/ Hydrocodone Bitart (Lortab 10/325) 1 tab PRN Q6HRS PRN PO PAIN; Start 04/03/19 at 11:15; Status UNV Acetaminophen/ Hydrocodone Bitart (Lortab 5/325) 1 tab PRN Q6HRS PRN PO PAIN; Start 04/03/19 at 11:15; Status UNV Indomethacin (Indocin) 25 mg PRN BID PRN PO INFLAMMATION/PAIN, 2nd CHOICE; Start 04/03/19 at 11:15 Lisinopril (Prinivil) 20 mg BID PO ; Start 04/03/19 at 21:00 Metoprolol Tartrate (Lopressor) 50 mg BID PO ; Start 04/03/19 at 21:00 Naproxen (Naprosyn) 500 mg PRN BID PRN PO INFLAMMATION/PAIN, 1st CHOICE; Start 04/03/19 at 11:15 Non-Formulary Medication (Metformin Hcl ) 1,000 mg DAILYWBKFT PO ; Start 04/04/19 at 08:00; Status UNV Sodium Chloride 1,000 ml @ 100 mls/hr 1X ONCE IV ; Start 04/03/19 at 11:15; Stop 04/03/19 at 21:14 Clindamycin Phosphate 50 ml @ 100 mls/hr Q8HRS IV ; Start 04/03/19 at 14:00 Piperacillin Sod/ Tazobactam Sod 3.375 gm/Sodium Chloride 50 ml @ 100 mls/hr Q6HRS IV ; Start 04/03/19 at 12:00 Active Scripts Active Ondansetron Odt (Ondansetron) 4 Mg Tab.rapdis 1 Tab PO PRN Q6-8HRS PRN Keflex (Cephalexin) 500 Mg Capsule 1 Cap PO BID Naprosyn (Naproxen) 500 Mg Tablet 1 Tab PO BID PRN Cyclobenzaprine Hcl 10 Mg Tablet 10 Mg PO TID PRN Lortab 5-325 mg Tablet (Hydrocodone/Acetaminophen) 1 Each Tablet 1 Tab PO PRN Q6HRS PRN Ibuprofen 600 Mg Tablet 600 Mg PO PRN Q6HRS PRN Ciprofloxacin Hcl 500 Mg Tablet 500 Mg PO BID Reported Hydrocodone-Apap 10-325 (Hydrocodone Bit/Acetaminophen) 1 Each Tablet 1 Tab PO PRN Q6HRS PRN not given today 05/22 Aspirin 81 Mg Tab.chew 1 Tab PO DAILY LAST DOSE GIVEN: DATE: 05/21/15 TIME: 9 am NEXT DOSE DUE: DATE: 05/22/15 TIME: 9 am Vitamin D (Cholecalciferol (Vitamin D3)) 1,000 Unit Tablet 1,000 Unit PO DAILY LAST DOSE GIVEN: DATE: 05/21/15 TIME: 9 am NEXT DOSE DUE: DATE: 05/22/15 TIME: 9 am Metformin Hcl 1,000 Mg Tablet 1,000 Mg PO DAILYWBKFT LAST DOSE GIVEN: DATE: 05/21/15 TIME: 9 am NEXT DOSE DUE: DATE: 05/22/15 TIME: 9 am Albuterol Sulfate Neb Soln (Albuterol Sulfate) 2.5 Mg/3 Ml Vial.neb 2.5 Mg NEB QID LAST DOSE GIVEN: DATE: 05/21/15 TIME: 1200 noon NEXT DOSE DUE: DATE: 05/21/15 TIME: 4 pm Lisinopril 20 Mg Tablet 1 Tab PO BID LAST DOSE GIVEN: DATE: 05/21/15 TIME: 9 am NEXT DOSE DUE: DATE: 05/21/15 TIME: 9 pm Metoprolol Tartrate 25 Mg Tablet 50 Mg PO BID LAST DOSE GIVEN: DATE: 05/21/15 TIME: 9 am NEXT DOSE DUE: DATE: 05/21/15 TIME: 9 pm Indomethacin 25 Mg Capsule 1 Cap PO BID PRN not given today 05/22 Allopurinol 100 Mg Tablet 200 Mg PO DAILY LAST DOSE GIVEN: DATE: 05/21/15 TIME: 9 am NEXT DOSE DUE: DATE: 05/22/15 TIME: 9 am Allergies Allergies: Coded Allergies: Latex, Natural Rubber (Verified Allergy, Intermediate, Rash, 04/03/16) oxycodone (Verified Allergy, Intermediate, Hives, 04/03/16) ROS Review of System fevers, neck pain and swelling, sore throat , painful swallowing Physical Exam General: Alert, Oriented X3, Cooperative, No acute distress, Other (mallampati 4 - cant see posterior pharyngeal wall becof mallampati and short neck and body habitus) HEENT: Atraumatic, PERRLA, EOMI Lungs: Clear to auscultation, Normal air movement Heart: S1S2, RRR, no thrills, no rubs, no gallops, no murmurs Cardiovascular: S1, S2 Breasts: Normal, Rt breast nml w/o mass, Lt breast nml w/o mass, Nipples normal Abdomen: Normal bowel sounds, Soft, No tenderness, No hepatosplenomegaly, No masses, Other (midline vertical scar) Rectal Exam: not examined PELVIC: Nml ext genitalia Extremities: No clubbing, No cyanosis, No edema, Normal pulses, No tenderness/swelling Skin: No rashes, No breakdown, No significant lesion Neuro: Normal gait, Normal speech, Strength at 5/5 X4 ext, Normal tone, Sensation intact, Cranial nerves 3-12 NL, Reflexes 2+ Psych/Mental Status: Mental status NL, Mood NL Vitals Vitals Vital Signs Date Time Temp Pulse Resp B/P (MAP) Pulse Ox O2 Delivery O2 Flow Rate FiO2 04/03/19 11:45 95 Room Air 04/03/19 08:40 99.2 106 18 136/72 (93) 99.2 Labs Labs Laboratory Tests Test 04/03/19 08:58 04/03/19 11:05 White Blood Count 9.7 x10^3/uL (4.0-11.0) Red Blood Count 4.88 x10^6/uL (3.50-5.40) Hemoglobin 13.9 g/dL (12.0-15.5) Hematocrit 42.0 % (36.0-47.0) Mean Corpuscular Volume 86 fL (79-100) Mean Corpuscular Hemoglobin 29 pg (25-35) Mean Corpuscular Hemoglobin Concent 33 g/dL (31-37) Red Cell Distribution Width 13.5 % (11.5-14.5) Platelet Count 310 x10^3/uL (140-400) Neutrophils (%) (Auto) 58 % (31-73) Lymphocytes (%) (Auto) 24 % (24-48) Monocytes (%) (Auto) 15 % (0-9) Eosinophils (%) (Auto) 2 % (0-3) Basophils (%) (Auto) 1 % (0-3) Neutrophils # (Auto) 5.7 x10^3/uL (1.8-7.7) Lymphocytes # (Auto) 2.3 x10^3/uL (1.0-4.8) Monocytes # (Auto) 1.5 x10^3/uL (0.0-1.1) Eosinophils # (Auto) 0.2 x10^3/uL (0.0-0.7) Basophils # (Auto) 0.1 x10^3/uL (0.0-0.2) Sodium Level 138 mmol/L (136-145) Potassium Level 3.9 mmol/L (3.5-5.1) Chloride Level 102 mmol/L (98-107) Carbon Dioxide Level 27 mmol/L (21-32) Anion Gap 9 (6-14) Blood Urea Nitrogen 8 mg/dL (7-20) Creatinine 0.8 mg/dL (0.6-1.0) Estimated GFR (Cockcroft-Gault) 79.0 BUN/Creatinine Ratio 10 (6-20) Glucose Level 112 mg/dL (70-99) Lactic Acid Level 1.3 mmol/L (0.4-2.0) Calcium Level 8.3 mg/dL (8.5-10.1) Total Bilirubin 0.6 mg/dL (0.2-1.0) Aspartate Amino Transf (AST/SGOT) 22 U/L (15-37) Alanine Aminotransferase (ALT/SGPT) 20 U/L (14-59) Alkaline Phosphatase 112 U/L (46-116) Total Protein 8.0 g/dL (6.4-8.2) Albumin 2.8 g/dL (3.4-5.0) Albumin/Globulin Ratio 0.5 (1.0-1.7) Heterophil Agglutinins Negative (NEGATIVE) Group A Streptococcus Rapid Negative (NEGATIVE) Laboratory Tests Test 04/03/19 08:58 04/03/19 11:05 White Blood Count 9.7 x10^3/uL (4.0-11.0) Red Blood Count 4.88 x10^6/uL (3.50-5.40) Hemoglobin 13.9 g/dL (12.0-15.5) Hematocrit 42.0 % (36.0-47.0) Mean Corpuscular Volume 86 fL (79-100) Mean Corpuscular Hemoglobin 29 pg (25-35) Mean Corpuscular Hemoglobin Concent 33 g/dL (31-37) Red Cell Distribution Width 13.5 % (11.5-14.5) Platelet Count 310 x10^3/uL (140-400) Neutrophils (%) (Auto) 58 % (31-73) Lymphocytes (%) (Auto) 24 % (24-48) Monocytes (%) (Auto) 15 % (0-9) Eosinophils (%) (Auto) 2 % (0-3) Basophils (%) (Auto) 1 % (0-3) Neutrophils # (Auto) 5.7 x10^3/uL (1.8-7.7) Lymphocytes # (Auto) 2.3 x10^3/uL (1.0-4.8) Monocytes # (Auto) 1.5 x10^3/uL (0.0-1.1) Eosinophils # (Auto) 0.2 x10^3/uL (0.0-0.7) Basophils # (Auto) 0.1 x10^3/uL (0.0-0.2) Sodium Level 138 mmol/L (136-145) Potassium Level 3.9 mmol/L (3.5-5.1) Chloride Level 102 mmol/L (98-107) Carbon Dioxide Level 27 mmol/L (21-32) Anion Gap 9 (6-14) Blood Urea Nitrogen 8 mg/dL (7-20) Creatinine 0.8 mg/dL (0.6-1.0) Estimated GFR (Cockcroft-Gault) 79.0 BUN/Creatinine Ratio 10 (6-20) Glucose Level 112 mg/dL (70-99) Lactic Acid Level 1.3 mmol/L (0.4-2.0) Calcium Level 8.3 mg/dL (8.5-10.1) Total Bilirubin 0.6 mg/dL (0.2-1.0) Aspartate Amino Transf (AST/SGOT) 22 U/L (15-37) Alanine Aminotransferase (ALT/SGPT) 20 U/L (14-59) Alkaline Phosphatase 112 U/L (46-116) Total Protein 8.0 g/dL (6.4-8.2) Albumin 2.8 g/dL (3.4-5.0) Albumin/Globulin Ratio 0.5 (1.0-1.7) Heterophil Agglutinins Negative (NEGATIVE) Group A Streptococcus Rapid Negative (NEGATIVE) VTE Prophylaxis Ordered VTE Prophylaxis Devices: Yes VTE Pharmacological Prophylaxi: Yes Assessment/Plan Assessment/Plan CERvical adenitis with small abscess, strep neg, heterophil neg INfected wisdom tooth MOrbid obesity BMI 66 FEvers HTN, DM on meds PLAn: NOn tele bed CLinda IV GI soft ESR check Decadron IV SOme saline Follow labs Agree with checking monophil antobodies - STREP throat neg FULL CODE MARGARET HANKS MD Apr 03, 2019 11:57
[2019-04-03] MEDS: DEXAMETHASONE SOD PHOS 4 MG/ML VIAL IVP SCH ×3 (12:37→23:34)
[2019-04-03] MEDS: PIPERACILLIN/TAZOBACTAM 3.375 GM in IV NORMAL SALINE 50ML 50 ML IV SCH ×3 (12:37→23:33)
[2019-04-03 14:07] VITALS: BP 136/76
[2019-04-03] MEDS: CLINDAMYCIN 600MG PREMIX 50 ML IV SCH ×2 (14:58→21:37)
[2019-04-03] MEDS ORDERED: FLU VAX QS 2019-20 (36MOS+)/PF 0.5 ML SYRINGE. VAX IM ONE (15:00)
[2019-04-03] MEDS: HYDROcodone/APAP 10/325 1 TAB TABLET PO PRN (18:00)
[2019-04-03 19:00] VITALS: BP 106/60
[2019-04-03] MEDS: LISINOPRIL 20 MG TABLET PO SCH (21:00)
[2019-04-03] MEDS: METOPROLOL TART IMMED RELEASE 25 MG TABLET. PO SCH (21:00)
[2019-04-03 23:00] VITALS: BP 97/60
[2019-04-04 03:00] VITALS: BP 97/54
[2019-04-04] MEDS: DEXAMETHASONE SOD PHOS 4 MG/ML VIAL IVP SCH ×3 (05:30→17:20)
[2019-04-04] MEDS: CLINDAMYCIN 600MG PREMIX 50 ML IV SCH ×3 (05:31→22:11)
[2019-04-04] MEDS: PIPERACILLIN/TAZOBACTAM 3.375 GM in IV NORMAL SALINE 50ML 50 ML IV SCH ×3 (05:31→17:18)
--- NOTE | 2019-04-04 06:04 | PDOC2 ---
CONSULT Date of Consult Date of Consult DATE: 04/03/19 TIME: 20:15 Reason for Consult Reason for Consult: right neck mass, acute cervical lymphadenitis Identification/Chief Complaint Chief Complaint right neck mass, acute cervical lymphadenitis History of Present Illness Reason for Visit: 39 year old female presented to ER this morning with worsening neck pain and swelling. She reports worsening symptoms over 6 days prior to admission. She reports started as infected wisdom tooth that still requires extraction. Tooth pain resolves. However, neck swelling/pain worsened. Patient also reports worsening dysphagia and that prompted return to ER. She was on oral clindamycin prior to admission. She reports subjective fevers. Past Medical History Cardiovascular: HTN Endocrine: Diabetes, Other Past Surgical History Past Surgical History: No pertinent history Family History Family History: Coronary Artery Disease Social History No ALCOHOL: none Drugs: None Current Problem List Problem List Problems Medical Problems: (1) Cervical adenitis Status: Chronic (2) Fever Status: Acute (3) HTN (hypertension) Status: Chronic (4) Lymphadenopathy Status: Acute (5) Morbid obesity Status: Chronic (6) Neck abscess Status: Acute Current Medications Current Medications Current Medications Sodium Chloride 1,000 ml @ 100 mls/hr Q10H IV Last administered on 04/03/19at 10:20; Start 04/03/19 at 08:52; Stop 04/03/19 at 18:51; Status DC Iohexol (Omnipaque 300 Mg/ml) 70 ml 1X ONCE IV Last administered on 04/03/19at 09:30; Start 04/03/19 at 09:30; Stop 04/03/19 at 09:31; Status DC Info (CONTRAST GIVEN -- Rx MONITORING) 1 each PRN DAILY PRN MC SEE COMMENTS; Start 04/03/19 at 09:30; Stop 04/05/19 at 09:29 Throat Lozenges (Cepacol Sore Throat Lozenge) 1 drew PRN Q2HRS PRN PO SORE THROAT; Start 04/03/19 at 11:15 Ondansetron HCl (Zofran) 4 mg PRN Q6HRS PRN IVP NAUSEA/VOMITING; Start 04/03/19 at 11:15 Lidocaine HCl (Viscous Lidocaine) 15 ml PRN Q4HRS PRN SWSW MOUTH PAIN; Start 04/03/19 at 11:15 Calcium Carbonate/ Glycine (Tums) 500 mg PRN AFTMEALHC PRN PO INDIGESTION; Start 04/03/19 at 11:15 Pantoprazole Sodium (Protonix) 40 mg DAILYAC PO ; Start 04/04/19 at 07:30 Zolpidem Tartrate (Ambien) 5 mg PRN QHS PRN PO INSOMNIA, MAY REPEAT IN 1HR; Start 04/03/19 at 11:15 Acetaminophen (Tylenol) 500 mg PRN Q6HRS PRN PO MILD PAIN / TEMP; Start 04/03/19 at 11:15 Tramadol HCl (Ultram) 50 mg PRN Q6HRS PRN PO MILD TO MODERATE PAIN; Start 04/03/19 at 11:15 Fentanyl Citrate (Fentanyl 2ml Vial) 50 mcg PRN Q2HR PRN IVP PAIN Last administered on 04/03/19at 14:57; Start 04/03/19 at 11:15 Albuterol Sulfate (Ventolin Neb Soln) 2.5 mg RTQID NEB Last administered on 04/03/19at 19:56; Start 04/03/19 at 12:00 Allopurinol (Zyloprim) 200 mg DAILY PO ; Start 04/04/19 at 09:00 Aspirin (Children'S Aspirin) 81 mg DAILY PO ; Start 04/04/19 at 09:00 Vitamin D (Vitamin D3) 1,000 unit DAILY PO ; Start 04/04/19 at 09:00 Cyclobenzaprine HCl (Flexeril) 10 mg PRN TID PRN PO MUSCLE PAIN; Start 04/03/19 at 11:15 Acetaminophen/ Hydrocodone Bitart (Lortab 10/325) 1 tab PRN Q6HRS PRN PO SEVERE PAIN Last administered on 04/03/19at 18:00; Start 04/03/19 at 11:15 Acetaminophen/ Hydrocodone Bitart (Lortab 5/325) 1 tab PRN Q6HRS PRN PO MODERATE PAIN; Start 04/03/19 at 11:15 Indomethacin (Indocin) 25 mg PRN BID PRN PO INFLAMMATION/PAIN, 2nd CHOICE; Start 04/03/19 at 11:15 Lisinopril (Prinivil) 20 mg BID PO ; Start 04/03/19 at 21:00 Metoprolol Tartrate (Lopressor) 50 mg BID PO ; Start 04/03/19 at 21:00 Naproxen (Naprosyn) 500 mg PRN BID PRN PO INFLAMMATION/PAIN, 1st CHOICE Last administered on 04/03/19at 18:00; Start 04/03/19 at 11:15 Metformin HCl (Glucophage) 1,000 mg DAILYWBKFT PO ; Start 04/06/19 at 08:00 Sodium Chloride 1,000 ml @ 100 mls/hr 1X ONCE IV Last administered on 04/03/19at 12:38; Start 04/03/19 at 11:15; Stop 04/03/19 at 21:14; Status DC Clindamycin Phosphate 50 ml @ 100 mls/hr Q8HRS IV Last administered on 04/04/19at 05:31; Start 04/03/19 at 14:00 Piperacillin Sod/ Tazobactam Sod 3.375 gm/Sodium Chloride 50 ml @ 100 mls/hr Q6HRS IV Last administered on 04/04/19at 05:31; Start 04/03/19 at 12:00 Dexamethasone Sodium Phosphate (Decadron) 4 mg Q6HRS IVP Last administered on 04/04/19at 05:30; Start 04/03/19 at 12:00 Influenza Virus Vaccine Quadrival (Afluria Quad 2019-20 (3yr Up) Syringe) 0.5 ml ONCE ONCE VAX IM Last administered on 04/03/19at 19:32; Start 04/03/19 at 15:00; Stop 04/03/19 at 15:01; Status DC Active Scripts Active Ondansetron Odt (Ondansetron) 4 Mg Tab.rapdis 1 Tab PO PRN Q6-8HRS PRN Keflex (Cephalexin) 500 Mg Capsule 1 Cap PO BID Naprosyn (Naproxen) 500 Mg Tablet 1 Tab PO BID PRN Cyclobenzaprine Hcl 10 Mg Tablet 10 Mg PO TID PRN Lortab 5-325 mg Tablet (Hydrocodone/Acetaminophen) 1 Each Tablet 1 Tab PO PRN Q6HRS PRN Ibuprofen 600 Mg Tablet 600 Mg PO PRN Q6HRS PRN Ciprofloxacin Hcl 500 Mg Tablet 500 Mg PO BID Reported Hydrocodone-Apap 10-325 (Hydrocodone Bit/Acetaminophen) 1 Each Tablet 1 Tab PO PRN Q6HRS PRN not given today 05/22 Aspirin 81 Mg Tab.chew 1 Tab PO DAILY LAST DOSE GIVEN: DATE: 05/21/15 TIME: 9 am NEXT DOSE DUE: DATE: 05/22/15 TIME: 9 am Vitamin D (Cholecalciferol (Vitamin D3)) 1,000 Unit Tablet 1,000 Unit PO DAILY LAST DOSE GIVEN: DATE: 05/21/15 TIME: 9 am NEXT DOSE DUE: DATE: 05/22/15 TIME: 9 am Metformin Hcl 1,000 Mg Tablet 1,000 Mg PO DAILYWBKFT LAST DOSE GIVEN: DATE: 05/21/15 TIME: 9 am NEXT DOSE DUE: DATE: 05/22/15 TIME: 9 am Albuterol Sulfate Neb Soln (Albuterol Sulfate) 2.5 Mg/3 Ml Vial.neb 2.5 Mg NEB QID LAST DOSE GIVEN: DATE: 05/21/15 TIME: 1200 noon NEXT DOSE DUE: DATE: 05/21/15 TIME: 4 pm Lisinopril 20 Mg Tablet 1 Tab PO BID LAST DOSE GIVEN: DATE: 05/21/15 TIME: 9 am NEXT DOSE DUE: DATE: 05/21/15 TIME: 9 pm Metoprolol Tartrate 25 Mg Tablet 50 Mg PO BID LAST DOSE GIVEN: DATE: 05/21/15 TIME: 9 am NEXT DOSE DUE: DATE: 05/21/15 TIME: 9 pm Indomethacin 25 Mg Capsule 1 Cap PO BID PRN not given today 05/22 Allopurinol 100 Mg Tablet 200 Mg PO DAILY LAST DOSE GIVEN: DATE: 05/21/15 TIME: 9 am NEXT DOSE DUE: DATE: 05/22/15 TIME: 9 am Allergies Allergies: Coded Allergies: Latex, Natural Rubber (Verified Allergy, Intermediate, Rash, 04/03/16) oxycodone (Verified Allergy, Intermediate, Hives, 04/03/16) ROS General: YES: Chills, Night Sweats HEENT: YES: Sore Throat Physical Exam General: Alert, Oriented X3, Cooperative HEENT: Atraumatic, Mucous membr. moist/pink, Other (tonsils 3+ in size, Neck: 5 cm right level 1/2 neck mass, tender to palpation, range of motion intact. ) Lungs: Normal air movement Heart: Regular rate Extremities: No clubbing, No cyanosis Skin: No rashes Psych/Mental Status: Mental status NL Vitals VITALS Vital Signs Date Time Temp Pulse Resp B/P (MAP) Pulse Ox O2 Delivery O2 Flow Rate FiO2 11/5/19 03:00 97.7 62 18 97/54 (68) 93 Room Air 97.7 Labs Labs Laboratory Tests Test 04/03/19 08:58 04/03/19 11:05 04/03/19 17:25 04/03/19 21:17 White Blood Count 9.7 x10^3/uL (4.0-11.0) Red Blood Count 4.88 x10^6/uL (3.50-5.40) Hemoglobin 13.9 g/dL (12.0-15.5) Hematocrit 42.0 % (36.0-47.0) Mean Corpuscular Volume 86 fL (79-100) Mean Corpuscular Hemoglobin 29 pg (25-35) Mean Corpuscular Hemoglobin Concent 33 g/dL (31-37) Red Cell Distribution Width 13.5 % (11.5-14.5) Platelet Count 310 x10^3/uL (140-400) Neutrophils (%) (Auto) 58 % (31-73) Lymphocytes (%) (Auto) 24 % (24-48) Monocytes (%) (Auto) 15 % (0-9) Eosinophils (%) (Auto) 2 % (0-3) Basophils (%) (Auto) 1 % (0-3) Neutrophils # (Auto) 5.7 x10^3/uL (1.8-7.7) Lymphocytes # (Auto) 2.3 x10^3/uL (1.0-4.8) Monocytes # (Auto) 1.5 x10^3/uL (0.0-1.1) Eosinophils # (Auto) 0.2 x10^3/uL (0.0-0.7) Basophils # (Auto) 0.1 x10^3/uL (0.0-0.2) Erythrocyte Sedimentation Rate 55 (0-25) Sodium Level 138 mmol/L (136-145) Potassium Level 3.9 mmol/L (3.5-5.1) Chloride Level 102 mmol/L (98-107) Carbon Dioxide Level 27 mmol/L (21-32) Anion Gap 9 (6-14) Blood Urea Nitrogen 8 mg/dL (7-20) Creatinine 0.8 mg/dL (0.6-1.0) Estimated GFR (Cockcroft-Gault) 79.0 BUN/Creatinine Ratio 10 (6-20) Glucose Level 112 mg/dL (70-99) Lactic Acid Level 1.3 mmol/L (0.4-2.0) Calcium Level 8.3 mg/dL (8.5-10.1) Total Bilirubin 0.6 mg/dL (0.2-1.0) Aspartate Amino Transf (AST/SGOT) 22 U/L (15-37) Alanine Aminotransferase (ALT/SGPT) 20 U/L (14-59) Alkaline Phosphatase 112 U/L (46-116) Total Protein 8.0 g/dL (6.4-8.2) Albumin 2.8 g/dL (3.4-5.0) Albumin/Globulin Ratio 0.5 (1.0-1.7) Heterophil Agglutinins Negative (NEGATIVE) Group A Streptococcus Rapid Negative (NEGATIVE) Glucose (Fingerstick) 168 mg/dL (70-99) 186 mg/dL (70-99) Laboratory Tests Test 04/03/19 08:58 04/03/19 11:05 04/03/19 17:25 04/03/19 21:17 White Blood Count 9.7 x10^3/uL (4.0-11.0) Red Blood Count 4.88 x10^6/uL (3.50-5.40) Hemoglobin 13.9 g/dL (12.0-15.5) Hematocrit 42.0 % (36.0-47.0) Mean Corpuscular Volume 86 fL (79-100) Mean Corpuscular Hemoglobin 29 pg (25-35) Mean Corpuscular Hemoglobin Concent 33 g/dL (31-37) Red Cell Distribution Width 13.5 % (11.5-14.5) Platelet Count 310 x10^3/uL (140-400) Neutrophils (%) (Auto) 58 % (31-73) Lymphocytes (%) (Auto) 24 % (24-48) Monocytes (%) (Auto) 15 % (0-9) Eosinophils (%) (Auto) 2 % (0-3) Basophils (%) (Auto) 1 % (0-3) Neutrophils # (Auto) 5.7 x10^3/uL (1.8-7.7) Lymphocytes # (Auto) 2.3 x10^3/uL (1.0-4.8) Monocytes # (Auto) 1.5 x10^3/uL (0.0-1.1) Eosinophils # (Auto) 0.2 x10^3/uL (0.0-0.7) Basophils # (Auto) 0.1 x10^3/uL (0.0-0.2) Erythrocyte Sedimentation Rate 55 (0-25) Sodium Level 138 mmol/L (136-145) Potassium Level 3.9 mmol/L (3.5-5.1) Chloride Level 102 mmol/L (98-107) Carbon Dioxide Level 27 mmol/L (21-32) Anion Gap 9 (6-14) Blood Urea Nitrogen 8 mg/dL (7-20) Creatinine 0.8 mg/dL (0.6-1.0) Estimated GFR (Cockcroft-Gault) 79.0 BUN/Creatinine Ratio 10 (6-20) Glucose Level 112 mg/dL (70-99) Lactic Acid Level 1.3 mmol/L (0.4-2.0) Calcium Level 8.3 mg/dL (8.5-10.1) Total Bilirubin 0.6 mg/dL (0.2-1.0) Aspartate Amino Transf (AST/SGOT) 22 U/L (15-37) Alanine Aminotransferase (ALT/SGPT) 20 U/L (14-59) Alkaline Phosphatase 112 U/L (46-116) Total Protein 8.0 g/dL (6.4-8.2) Albumin 2.8 g/dL (3.4-5.0) Albumin/Globulin Ratio 0.5 (1.0-1.7) Heterophil Agglutinins Negative (NEGATIVE) Group A Streptococcus Rapid Negative (NEGATIVE) Glucose (Fingerstick) 168 mg/dL (70-99) 186 mg/dL (70-99) Images Images CT Neck with Contrast: Enlarged lymph nodes are seen throughout the neck, right greater than left. These measure 1 to 2 cm in size. An oval-shaped mass is seen within the right neck immediately anterior to the right internal jugular vein, lateral to the right internal carotid artery, posterior to the right submandibular gland and medial to the right sternocleidomastoid muscle which measures 7.2 x 3.7 x 2.8 cm in craniocaudal, AP and transverse dimensions. This is felt to most likely represent a conglomerate matted mass of lymph nodes. Low-attenuation areas are seen within this mass which measure 9 mm to 2 cm in size which are felt to represent areas of abscess formation. No additional mass is seen. Edema is seen throughout the soft tissues of the right neck. Assessment/Plan Assessment/Plan 39 year old female with acute right cervical lymphadenopathy with small areas of decreased attenuation c/w small abscesses (multiple). Likely dental origin based on history. Patient does feel that symptoms have improved since hospital admission. - Recommend continue broad spectrum antibiotics. Patient currently on clindamycin, zosyn. - I prefer to trial 48 hours of antibiotics and plan to repeat imaging (CT neck with contrast) late Wednesday night. - Please make NPO for Wednesday 04/04-- if not improving on that date, may require surgical intervention. - I will continue to follow closely. VICTORINO GOMEZ MD Apr 04, 2019 06:04
[2019-04-04 07:00] VITALS: BP 114/70
[2019-04-04] MEDS: ALBUTEROL SULFATE 2.5 MG/3 ML NEBU. NEB SCH ×4 (07:23→19:46)
[2019-04-04] MEDS: PANTOPRAZOLE 40 MG TABLET.DR. PO SCH (07:56)
[2019-04-04] MEDS: CHOLECALCIFEROL (VITAMIN D3) 1,000 UNIT TABLET PO SCH (07:56)
[2019-04-04] MEDS: METOPROLOL TART IMMED RELEASE 25 MG TABLET. PO SCH ×2 (07:57→22:12)
[2019-04-04] MEDS: HYDROcodone/APAP 10/325 1 TAB TABLET PO PRN ×2 (07:57→17:43)
[2019-04-04] MEDS: LISINOPRIL 20 MG TABLET PO SCH ×2 (07:58→22:13)
[2019-04-04] MEDS: ALLOPURINOL 100 MG TABLET. PO SCH (07:58)
[2019-04-04] MEDS ORDERED: DEXTROSE 50% 25 GM / 50ML DISP.SYRIN. IV PRN (08:45)
[2019-04-04] MEDS ORDERED: ASPIRIN CHEWABLE 81 MG TABLET. PO SCH (09:00)
[2019-04-04 11:00] VITALS: BP 104/57
--- NOTE | 2019-04-04 11:02 | PDOC ---
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 Dw her cont decadron, clinda iV etc Vitals Vitals Vital Signs Date Time Temp Pulse Resp B/P (MAP) Pulse Ox O2 Delivery O2 Flow Rate FiO2 04/04/19 07:58 62 97/54 04/04/19 07:57 20 Room Air 04/04/19 07:24 96 04/04/19 07:00 97.3 97.3 Physical Exam General: Alert, Oriented X3, Cooperative Heart: Regular rate Lungs: Clear Abdomen: Normal bowel sounds, Soft, No tenderness, No hepatosplenomegaly, No masses, Other (midline vertical scar) Extremities: No clubbing, No cyanosis Skin: No rashes Labs LABS Laboratory Tests Test 04/03/19 11:05 04/03/19 17:25 04/03/19 21:17 04/04/19 07:12 Group A Streptococcus Rapid Negative (NEGATIVE) Glucose (Fingerstick) 168 mg/dL (70-99) 186 mg/dL (70-99) 176 mg/dL (70-99) Review of Systems Review of Systems RT neck,s welling,pain, no fevers, no abd pain, diarrhea etc, all else neg Assessment and Plan Assessmemt and Plan Problems Medical Problems: (1) Cervical adenitis Status: Chronic (2) Fever Status: Acute (3) HTN (hypertension) Status: Chronic (4) Lymphadenopathy Status: Acute (5) Morbid obesity Status: Chronic (6) Neck abscess Status: Acute Comment Review of Relevant I have reviewed the following items libby (where applicable) has been applied. Labs Laboratory Tests Test 04/03/19 08:58 04/03/19 11:05 04/03/19 17:25 04/03/19 21:17 White Blood Count 9.7 x10^3/uL (4.0-11.0) Red Blood Count 4.88 x10^6/uL (3.50-5.40) Hemoglobin 13.9 g/dL (12.0-15.5) Hematocrit 42.0 % (36.0-47.0) Mean Corpuscular Volume 86 fL (79-100) Mean Corpuscular Hemoglobin 29 pg (25-35) Mean Corpuscular Hemoglobin Concent 33 g/dL (31-37) Red Cell Distribution Width 13.5 % (11.5-14.5) Platelet Count 310 x10^3/uL (140-400) Neutrophils (%) (Auto) 58 % (31-73) Lymphocytes (%) (Auto) 24 % (24-48) Monocytes (%) (Auto) 15 % (0-9) Eosinophils (%) (Auto) 2 % (0-3) Basophils (%) (Auto) 1 % (0-3) Neutrophils # (Auto) 5.7 x10^3/uL (1.8-7.7) Lymphocytes # (Auto) 2.3 x10^3/uL (1.0-4.8) Monocytes # (Auto) 1.5 x10^3/uL (0.0-1.1) Eosinophils # (Auto) 0.2 x10^3/uL (0.0-0.7) Basophils # (Auto) 0.1 x10^3/uL (0.0-0.2) Erythrocyte Sedimentation Rate 55 (0-25) Sodium Level 138 mmol/L (136-145) Potassium Level 3.9 mmol/L (3.5-5.1) Chloride Level 102 mmol/L (98-107) Carbon Dioxide Level 27 mmol/L (21-32) Anion Gap 9 (6-14) Blood Urea Nitrogen 8 mg/dL (7-20) Creatinine 0.8 mg/dL (0.6-1.0) Estimated GFR (Cockcroft-Gault) 79.0 BUN/Creatinine Ratio 10 (6-20) Glucose Level 112 mg/dL (70-99) Lactic Acid Level 1.3 mmol/L (0.4-2.0) Calcium Level 8.3 mg/dL (8.5-10.1) Total Bilirubin 0.6 mg/dL (0.2-1.0) Aspartate Amino Transf (AST/SGOT) 22 U/L (15-37) Alanine Aminotransferase (ALT/SGPT) 20 U/L (14-59) Alkaline Phosphatase 112 U/L (46-116) Total Protein 8.0 g/dL (6.4-8.2) Albumin 2.8 g/dL (3.4-5.0) Albumin/Globulin Ratio 0.5 (1.0-1.7) Heterophil Agglutinins Negative (NEGATIVE) Group A Streptococcus Rapid Negative (NEGATIVE) Glucose (Fingerstick) 168 mg/dL (70-99) 186 mg/dL (70-99) Test 04/04/19 07:12 Glucose (Fingerstick) 176 mg/dL (70-99) Laboratory Tests Test 04/03/19 11:05 04/03/19 17:25 04/03/19 21:17 04/04/19 07:12 Group A Streptococcus Rapid Negative (NEGATIVE) Glucose (Fingerstick) 168 mg/dL (70-99) 186 mg/dL (70-99) 176 mg/dL (70-99) Microbiology 04/03/19 Blood Culture - Preliminary, Resulted NO GROWTH AFTER 1 DAY Medications Current Medications Sodium Chloride 1,000 ml @ 100 mls/hr Q10H IV Last administered on 04/03/19at 10:20; Start 04/03/19 at 08:52; Stop 04/03/19 at 18:51; Status DC Iohexol (Omnipaque 300 Mg/ml) 70 ml 1X ONCE IV Last administered on 04/03/19at 09:30; Start 04/03/19 at 09:30; Stop 04/03/19 at 09:31; Status DC Info (CONTRAST GIVEN -- Rx MONITORING) 1 each PRN DAILY PRN MC SEE COMMENTS; Start 04/03/19 at 09:30; Stop 04/05/19 at 09:29 Throat Lozenges (Cepacol Sore Throat Lozenge) 1 drew PRN Q2HRS PRN PO SORE THROAT; Start 04/03/19 at 11:15 Ondansetron HCl (Zofran) 4 mg PRN Q6HRS PRN IVP NAUSEA/VOMITING; Start 04/03/19 at 11:15 Lidocaine HCl (Viscous Lidocaine) 15 ml PRN Q4HRS PRN SWSW MOUTH PAIN; Start 04/03/19 at 11:15 Calcium Carbonate/ Glycine (Tums) 500 mg PRN AFTMEALHC PRN PO INDIGESTION; Start 04/03/19 at 11:15 Pantoprazole Sodium (Protonix) 40 mg DAILYAC PO Last administered on 04/04/19at 07:56; Start 04/04/19 at 07:30 Zolpidem Tartrate (Ambien) 5 mg PRN QHS PRN PO INSOMNIA, MAY REPEAT IN 1HR; Start 04/03/19 at 11:15 Acetaminophen (Tylenol) 500 mg PRN Q6HRS PRN PO MILD PAIN / TEMP; Start 04/03/19 at 11:15 Tramadol HCl (Ultram) 50 mg PRN Q6HRS PRN PO MILD TO MODERATE PAIN; Start 04/03/19 at 11:15 Fentanyl Citrate (Fentanyl 2ml Vial) 50 mcg PRN Q2HR PRN IVP PAIN Last administered on 04/03/19at 14:57; Start 04/03/19 at 11:15 Albuterol Sulfate (Ventolin Neb Soln) 2.5 mg RTQID NEB Last administered on 04/04/19at 07:23; Start 04/03/19 at 12:00 Allopurinol (Zyloprim) 200 mg DAILY PO Last administered on 04/04/19at 07:58; Start 04/04/19 at 09:00 Aspirin (Children'S Aspirin) 81 mg DAILY PO Last administered on 04/04/19at 07:56; Start 04/04/19 at 09:00; Stop 04/04/19 at 08:40; Status DC Vitamin D (Vitamin D3) 1,000 unit DAILY PO Last administered on 04/04/19at 07:56; Start 04/04/19 at 09:00 Cyclobenzaprine HCl (Flexeril) 10 mg PRN TID PRN PO MUSCLE PAIN; Start 04/03/19 at 11:15 Acetaminophen/ Hydrocodone Bitart (Lortab 10/325) 1 tab PRN Q6HRS PRN PO SEVERE PAIN Last administered on 04/04/19at 07:57; Start 04/03/19 at 11:15 Acetaminophen/ Hydrocodone Bitart (Lortab 5/325) 1 tab PRN Q6HRS PRN PO MODERATE PAIN; Start 04/03/19 at 11:15 Indomethacin (Indocin) 25 mg PRN BID PRN PO INFLAMMATION/PAIN, 2nd CHOICE; Start 04/03/19 at 11:15; Stop 04/04/19 at 08:41; Status DC Lisinopril (Prinivil) 20 mg BID PO Last administered on 04/04/19at 07:58; Start 04/03/19 at 21:00 Metoprolol Tartrate (Lopressor) 50 mg BID PO Last administered on 04/04/19at 07:57; Start 04/03/19 at 21:00 Naproxen (Naprosyn) 500 mg PRN BID PRN PO INFLAMMATION/PAIN, 1st CHOICE Last administered on 04/03/19at 18:00; Start 04/03/19 at 11:15; Stop 04/04/19 at 08:41; Status DC Metformin HCl (Glucophage) 1,000 mg DAILYWBKFT PO ; Start 04/06/19 at 08:00; Stop 04/04/19 at 08:41; Status DC Sodium Chloride 1,000 ml @ 100 mls/hr 1X ONCE IV Last administered on 04/03/19at 12:38; Start 04/03/19 at 11:15; Stop 04/03/19 at 21:14; Status DC Clindamycin Phosphate 50 ml @ 100 mls/hr Q8HRS IV Last administered on 04/04/19at 05:31; Start 04/03/19 at 14:00 Piperacillin Sod/ Tazobactam Sod 3.375 gm/Sodium Chloride 50 ml @ 100 mls/hr Q6HRS IV Last administered on 04/04/19at 05:31; Start 04/03/19 at 12:00 Dexamethasone Sodium Phosphate (Decadron) 4 mg Q6HRS IVP Last administered on 04/04/19at 05:30; Start 04/03/19 at 12:00 Influenza Virus Vaccine Quadrival (Afluria Quad 2019-20 (3yr Up) Syringe) 0.5 ml ONCE ONCE VAX IM Last administered on 04/03/19at 19:32; Start 04/03/19 at 15:00; Stop 04/03/19 at 15:01; Status DC Insulin Human Lispro (HumaLOG) 0-9 UNITS TIDWMEALS SQ ; Start 04/04/19 at 12:00 Dextrose (Dextrose 50%-Water Syringe) 12.5 gm PRN Q15MIN PRN IV SEE COMMENTS; Start 04/04/19 at 08:45 Active Scripts Active Ondansetron Odt (Ondansetron) 4 Mg Tab.rapdis 1 Tab PO PRN Q6-8HRS PRN Keflex (Cephalexin) 500 Mg Capsule 1 Cap PO BID Naprosyn (Naproxen) 500 Mg Tablet 1 Tab PO BID PRN Cyclobenzaprine Hcl 10 Mg Tablet 10 Mg PO TID PRN Lortab 5-325 mg Tablet (Hydrocodone/Acetaminophen) 1 Each Tablet 1 Tab PO PRN Q6HRS PRN Ibuprofen 600 Mg Tablet 600 Mg PO PRN Q6HRS PRN Ciprofloxacin Hcl 500 Mg Tablet 500 Mg PO BID Reported Hydrocodone-Apap 10-325 (Hydrocodone Bit/Acetaminophen) 1 Each Tablet 1 Tab PO PRN Q6HRS PRN not given today 05/22 Aspirin 81 Mg Tab.chew 1 Tab PO DAILY LAST DOSE GIVEN: DATE: 05/21/15 TIME: 9 am NEXT DOSE DUE: DATE: 05/22/15 TIME: 9 am Vitamin D (Cholecalciferol (Vitamin D3)) 1,000 Unit Tablet 1,000 Unit PO DAILY LAST DOSE GIVEN: DATE: 05/21/15 TIME: 9 am NEXT DOSE DUE: DATE: 05/22/15 TIME: 9 am Metformin Hcl 1,000 Mg Tablet 1,000 Mg PO DAILYWBKFT LAST DOSE GIVEN: DATE: 05/21/15 TIME: 9 am NEXT DOSE DUE: DATE: 05/22/15 TIME: 9 am Albuterol Sulfate Neb Soln (Albuterol Sulfate) 2.5 Mg/3 Ml Vial.neb 2.5 Mg NEB QID LAST DOSE GIVEN: DATE: 05/21/15 TIME: 1200 noon NEXT DOSE DUE: DATE: 05/21/15 TIME: 4 pm Lisinopril 20 Mg Tablet 1 Tab PO BID LAST DOSE GIVEN: DATE: 05/21/15 TIME: 9 am NEXT DOSE DUE: DATE: 05/21/15 TIME: 9 pm Metoprolol Tartrate 25 Mg Tablet 50 Mg PO BID LAST DOSE GIVEN: DATE: 05/21/15 TIME: 9 am NEXT DOSE DUE: DATE: 05/21/15 TIME: 9 pm Indomethacin 25 Mg Capsule 1 Cap PO BID PRN not given today 05/22 Allopurinol 100 Mg Tablet 200 Mg PO DAILY LAST DOSE GIVEN: DATE: 05/21/15 TIME: 9 am NEXT DOSE DUE: DATE: 05/22/15 TIME: 9 am Vitals/I & O Vital Sign - Last 24 Hours 04/03/19 04/03/19 04/03/19 04/03/19 11:45 13:32 14:07 14:57 Temp 98.0 98.0 Pulse 101 100 Resp 18 16 20 B/P (MAP) 151/70 (97) 136/76 (96) Pulse Ox 95 98 93 O2 Delivery Room Air Room Air Room Air 04/03/19 04/03/19 04/03/19 04/03/19 15:27 16:13 17:04 18:00 Pulse Ox 95 O2 Delivery Room Air Room Air Room Air Room Air 04/03/19 04/03/19 04/03/19 04/03/19 19:00 19:00 19:57 20:00 Temp 99.4 99.4 Pulse 99 Resp 18 B/P (MAP) 106/60 (75) Pulse Ox 95 94 O2 Delivery Room Air Room Air Room Air 04/03/19 04/03/19 04/03/19 04/04/19 21:00 21:00 23:00 03:00 Temp 97.4 97.7 97.4 97.7 Pulse 99 99 78 62 Resp 20 18 B/P (MAP) 106/60 106/60 97/60 (72) 97/54 (68) Pulse Ox 93 93 O2 Delivery Room Air 04/04/19 04/04/19 04/04/19 04/04/19 07:00 07:24 07:57 07:57 Temp 97.3 97.3 Pulse 68 62 Resp 16 20 B/P (MAP) 114/70 (85) 97/54 Pulse Ox 94 96 O2 Delivery Room Air Room Air Room Air 04/04/19 07:58 Pulse 62 B/P (MAP) 97/54 Intake and Output 04/03/19 04/03/19 04/04/19 15:00 23:00 07:00 Intake Total 1050 ml 50 ml 50 ml Balance 1050 ml 50 ml 50 ml MARGARET HANKS MD Apr 04, 2019 11:02
[2019-04-04] MEDS: INSULIN LISPRO 300 UNITS/3 ML VIAL. SQ SCH ×2 (11:54→17:21)
--- NOTE | 2019-04-04 11:57 | NUR ---
SW following. Discussed with RN, pt is from home, CT scan today. RN advised no SW needs at this time. SW will continue to follow.
[2019-04-04] MEDS ORDERED: IOHEXOL 300 MG/ML 100ML VIAL. IV ONE (12:15)
[2019-04-04] MEDS ORDERED: CONTRAST GIVEN. MC PRN (12:15)
[2019-04-04 15:00] VITALS: BP 105/64
--- NOTE | 2019-04-04 18:16 | NUR ---
Pt has had uneventful day. Pt states that Rt neck is less painful and less swollen today. Dr Yael Arshad here and pt will cont ABX thru night and CT with contrast neck will be done in AM. NPO after MN for poss OR tomorrow. at bedside thru the day. afebrile. Ambulated easily to BR. PO intake good.
[2019-04-04 19:51] VITALS: BP 113/71
--- NOTE | 2019-04-04 21:26 | PDOC ---
Subjective: Subjective: Patient reports still having pain/swelling of right neck. She does report easier to swallow today. Overall, she is feeling better. Objective: Vital Signs: Vital Signs Date Time Temp Pulse Resp B/P (MAP) Pulse Ox O2 Delivery O2 Flow Rate FiO2 04/04/19 20:20 Room Air 04/04/19 19:51 97.5 94 20 113/71 (85) 98 97.5 Labs: Laboratory Tests Test 04/04/19 07:12 04/04/19 11:04 04/04/19 16:49 Glucose (Fingerstick) 176 mg/dL (70-99) 235 mg/dL (70-99) 204 mg/dL (70-99) Physical Exam: Physical Exam: GEN: NAD OC/OP: Severe caries present right posterior mandibular molar, tenderness of mucosa surrounding dentition. Floor of mouth soft. Oropharynx has normal appearance Neck: Continued induration/swelling of right level 1B/2 neck, conglomeration of lymph nodes, Mild overlying erythema. Does feel slightly smaller than yest erday, adequate range of motion CV: S1S2 without murmurs, rubs, or gallops RESP: CTAB without wheezing, rhonchi, or crackles ABD: NABS, SNT/ND EXT: No edema NEURO: AAO x 3 Assessment & Plan: Assessment : 39 year old female with acute cervical lymphadenitis with small abscess secondary to dental infection (right posterior mandibular molar). Overall, improving with IV antibiotics. Plan: 1. Continue IV clindamycin, IV zosyn at this time. 2. Repeat CT neck with contrast in AM. NPO after midnight 3. If CT not showing considerable improvement/resolution of abscess/severe ly mphadenitis, consider going to OR for I&D. 4. Discussed with patient that she will need to see dental after discharge for tooth extraction or symptoms will recur. VICTORINO GOMEZ MD Apr 04, 2019 21:26
[2019-04-04 23:22] VITALS: BP 106/55
[2019-04-05] MEDS: PIPERACILLIN/TAZOBACTAM 3.375 GM in IV NORMAL SALINE 50ML 50 ML IV SCH ×4 (00:32→18:12)
[2019-04-05] MEDS: DEXAMETHASONE SOD PHOS 4 MG/ML VIAL IVP SCH ×4 (00:32→18:12)
[2019-04-05 03:13] VITALS: BP 114/74
[2019-04-05 05:02] LABS: BASO % 0 % (0-3); EOS % 0 % (0-3); HEMATOCRIT 40.6 % (36.0-47.0); HEMOGLOBIN 13.5 g/dL (12.0-15.5); LYMPH % 9 % (24-48); MEAN CORPUSCULAR HEMOGLOBIN 28 pg (25-35); MEAN CORPUSCULAR HGB CONC 33 g/dL (31-37); MEAN CORPUSCULAR VOLUME 85 fL (79-100); MONO # 1.2 x10^3/uL (0.0-1.1); MONO % 6 % (0-9); NEUT # 17.7 x10^3/uL (1.8-7.7); NEUT % 85 % (31-73); PLATELET COUNT 334 x10^3/uL (140-400); RED BLOOD COUNT 4.76 x10^6/uL (3.50-5.40); RED CELL DISTRIBUTION WIDTH 13.8 % (11.5-14.5); WHITE BLOOD COUNT 20.9 x10^3/uL (4.0-11.0)
[2019-04-05 05:16] LABS: PROTHROMBIN TIME PATIENT 13.9 SEC (11.7-14.0)
[2019-04-05] MEDS: CLINDAMYCIN 600MG PREMIX 50 ML IV SCH ×3 (05:31→21:51)
[2019-04-05 05:48] LABS: CALCIUM 8.6 mg/dL (8.5-10.1); CREATININE 0.9 mg/dL (0.6-1.0)
[2019-04-05 06:30] LABS: POTASSIUM 4.4 mmol/L (3.5-5.1)
[2019-04-05 07:00] VITALS: BP 120/63
[2019-04-05] MEDS: ALBUTEROL SULFATE 2.5 MG/3 ML NEBU. NEB SCH ×4 (07:17→20:24)
[2019-04-05] MEDS: INSULIN LISPRO 300 UNITS/3 ML VIAL. SQ SCH ×3 (08:00→18:18)
[2019-04-05] MEDS ORDERED: IOHEXOL 300 MG/ML 100ML VIAL. IV ONE (08:00)
[2019-04-05 08:11] LABS: % BANDS 13 % (0-9); % LYMPHS 9 % (24-48); % MONOS 4 % (0-10); % MYELOS 1 % (0-0); % SEGS 73 % (35-66); PLT ESTIMATE ADEQUATE (ADEQUATE)
[2019-04-05] MEDS ORDERED: CONTRAST GIVEN. MC PRN (08:15)
--- NOTE | 2019-04-05 09:49 | PDOC ---
PROGRESS NOTES Chief Complaint Chief Complaint CERvical adenitis with small abscess, strep neg, heterophil neg INfected wisdom tooth MOrbid obesity BMI 66 FEvers HTN, DM on meds History of Present Illness History of Present Illness SHe is being wheeled out for Interval CT re ordered for today AM by ENT she feels better LEss swelling but still there TOlerating GI soft Might need sx if no improvement/worse PLAN ff up CT HAs been NPO cont IV abx Dw her cont decadron, clinda iV etc Vitals Vitals Vital Signs Date Time Temp Pulse Resp B/P (MAP) Pulse Ox O2 Delivery O2 Flow Rate FiO2 04/05/19 07:30 Room Air 04/05/19 07:18 96 04/05/19 07:00 97.7 79 19 120/63 (82) 97.7 Physical Exam General: Alert, Oriented X3, Cooperative Heart: Regular rate Lungs: Clear Abdomen: Normal bowel sounds, Soft, No tenderness, No hepatosplenomegaly, No masses, Other (midline vertical scar) Extremities: No clubbing, No cyanosis Skin: No rashes Labs LABS Laboratory Tests Test 04/04/19 11:04 04/04/19 16:49 04/05/19 04:25 04/05/19 07:36 Glucose (Fingerstick) 235 mg/dL (70-99) 204 mg/dL (70-99) 128 mg/dL (70-99) White Blood Count 20.9 x10^3/uL (4.0-11.0) Red Blood Count 4.76 x10^6/uL (3.50-5.40) Hemoglobin 13.5 g/dL (12.0-15.5) Hematocrit 40.6 % (36.0-47.0) Mean Corpuscular Volume 85 fL (79-100) Mean Corpuscular Hemoglobin 28 pg (25-35) Mean Corpuscular Hemoglobin Concent 33 g/dL (31-37) Red Cell Distribution Width 13.8 % (11.5-14.5) Platelet Count 334 x10^3/uL (140-400) Neutrophils (%) (Auto) 85 % (31-73) Lymphocytes (%) (Auto) 9 % (24-48) Monocytes (%) (Auto) 6 % (0-9) Eosinophils (%) (Auto) 0 % (0-3) Basophils (%) (Auto) 0 % (0-3) Neutrophils # (Auto) 17.7 x10^3/uL (1.8-7.7) Lymphocytes # (Auto) 2.0 x10^3/uL (1.0-4.8) Monocytes # (Auto) 1.2 x10^3/uL (0.0-1.1) Eosinophils # (Auto) 0.0 x10^3/uL (0.0-0.7) Basophils # (Auto) 0.0 x10^3/uL (0.0-0.2) Segmented Neutrophils % 73 % (35-66) Band Neutrophils % 13 % (0-9) Lymphocytes % 9 % (24-48) Monocytes % 4 % (0-10) Myelocytes % 1 % (0-0) Platelet Estimate Adequate (ADEQUATE) Prothrombin Time 13.9 SEC (11.7-14.0) Prothromb Time International Ratio 1.1 (0.8-1.1) Sodium Level 142 mmol/L (136-145) Potassium Level 4.4 mmol/L (3.5-5.1) Chloride Level 106 mmol/L (98-107) Carbon Dioxide Level 27 mmol/L (21-32) Anion Gap 9 (6-14) Blood Urea Nitrogen 18 mg/dL (7-20) Creatinine 0.9 mg/dL (0.6-1.0) Estimated GFR (Cockcroft-Gault) 69.0 Glucose Level 139 mg/dL (70-99) Calcium Level 8.6 mg/dL (8.5-10.1) Review of Systems Review of Systems neck pain and swelling, no fevers, all else 14pt neg Assessment and Plan Assessmemt and Plan Problems Medical Problems: (1) Cervical adenitis Status: Chronic (2) Fever Status: Acute (3) HTN (hypertension) Status: Chronic (4) Lymphadenopathy Status: Acute (5) Morbid obesity Status: Chronic (6) Neck abscess Status: Acute Comment Review of Relevant I have reviewed the following items libby (where applicable) has been applied. Labs Laboratory Tests Test 04/03/19 11:05 04/03/19 17:25 04/03/19 21:17 04/04/19 07:12 Group A Streptococcus Rapid Negative (NEGATIVE) Glucose (Fingerstick) 168 mg/dL (70-99) 186 mg/dL (70-99) 176 mg/dL (70-99) Test 04/04/19 11:04 04/04/19 16:49 04/05/19 04:25 04/05/19 07:36 Glucose (Fingerstick) 235 mg/dL (70-99) 204 mg/dL (70-99) 128 mg/dL (70-99) White Blood Count 20.9 x10^3/uL (4.0-11.0) Red Blood Count 4.76 x10^6/uL (3.50-5.40) Hemoglobin 13.5 g/dL (12.0-15.5) Hematocrit 40.6 % (36.0-47.0) Mean Corpuscular Volume 85 fL (79-100) Mean Corpuscular Hemoglobin 28 pg (25-35) Mean Corpuscular Hemoglobin Concent 33 g/dL (31-37) Red Cell Distribution Width 13.8 % (11.5-14.5) Platelet Count 334 x10^3/uL (140-400) Neutrophils (%) (Auto) 85 % (31-73) Lymphocytes (%) (Auto) 9 % (24-48) Monocytes (%) (Auto) 6 % (0-9) Eosinophils (%) (Auto) 0 % (0-3) Basophils (%) (Auto) 0 % (0-3) Neutrophils # (Auto) 17.7 x10^3/uL (1.8-7.7) Lymphocytes # (Auto) 2.0 x10^3/uL (1.0-4.8) Monocytes # (Auto) 1.2 x10^3/uL (0.0-1.1) Eosinophils # (Auto) 0.0 x10^3/uL (0.0-0.7) Basophils # (Auto) 0.0 x10^3/uL (0.0-0.2) Segmented Neutrophils % 73 % (35-66) Band Neutrophils % 13 % (0-9) Lymphocytes % 9 % (24-48) Monocytes % 4 % (0-10) Myelocytes % 1 % (0-0) Platelet Estimate Adequate (ADEQUATE) Prothrombin Time 13.9 SEC (11.7-14.0) Prothromb Time International Ratio 1.1 (0.8-1.1) Sodium Level 142 mmol/L (136-145) Potassium Level 4.4 mmol/L (3.5-5.1) Chloride Level 106 mmol/L (98-107) Carbon Dioxide Level 27 mmol/L (21-32) Anion Gap 9 (6-14) Blood Urea Nitrogen 18 mg/dL (7-20) Creatinine 0.9 mg/dL (0.6-1.0) Estimated GFR (Cockcroft-Gault) 69.0 Glucose Level 139 mg/dL (70-99) Calcium Level 8.6 mg/dL (8.5-10.1) Laboratory Tests Test 04/04/19 11:04 04/04/19 16:49 04/05/19 04:25 04/05/19 07:36 Glucose (Fingerstick) 235 mg/dL (70-99) 204 mg/dL (70-99) 128 mg/dL (70-99) White Blood Count 20.9 x10^3/uL (4.0-11.0) Red Blood Count 4.76 x10^6/uL (3.50-5.40) Hemoglobin 13.5 g/dL (12.0-15.5) Hematocrit 40.6 % (36.0-47.0) Mean Corpuscular Volume 85 fL (79-100) Mean Corpuscular Hemoglobin 28 pg (25-35) Mean Corpuscular Hemoglobin Concent 33 g/dL (31-37) Red Cell Distribution Width 13.8 % (11.5-14.5) Platelet Count 334 x10^3/uL (140-400) Neutrophils (%) (Auto) 85 % (31-73) Lymphocytes (%) (Auto) 9 % (24-48) Monocytes (%) (Auto) 6 % (0-9) Eosinophils (%) (Auto) 0 % (0-3) Basophils (%) (Auto) 0 % (0-3) Neutrophils # (Auto) 17.7 x10^3/uL (1.8-7.7) Lymphocytes # (Auto) 2.0 x10^3/uL (1.0-4.8) Monocytes # (Auto) 1.2 x10^3/uL (0.0-1.1) Eosinophils # (Auto) 0.0 x10^3/uL (0.0-0.7) Basophils # (Auto) 0.0 x10^3/uL (0.0-0.2) Segmented Neutrophils % 73 % (35-66) Band Neutrophils % 13 % (0-9) Lymphocytes % 9 % (24-48) Monocytes % 4 % (0-10) Myelocytes % 1 % (0-0) Platelet Estimate Adequate (ADEQUATE) Prothrombin Time 13.9 SEC (11.7-14.0) Prothromb Time International Ratio 1.1 (0.8-1.1) Sodium Level 142 mmol/L (136-145) Potassium Level 4.4 mmol/L (3.5-5.1) Chloride Level 106 mmol/L (98-107) Carbon Dioxide Level 27 mmol/L (21-32) Anion Gap 9 (6-14) Blood Urea Nitrogen 18 mg/dL (7-20) Creatinine 0.9 mg/dL (0.6-1.0) Estimated GFR (Cockcroft-Gault) 69.0 Glucose Level 139 mg/dL (70-99) Calcium Level 8.6 mg/dL (8.5-10.1) Microbiology 04/03/19 Blood Culture - Preliminary, Resulted NO GROWTH AFTER 2 DAYS Medications Current Medications Sodium Chloride 1,000 ml @ 100 mls/hr Q10H IV Last administered on 04/03/19at 10:20; Start 04/03/19 at 08:52; Stop 04/03/19 at 18:51; Status DC Iohexol (Omnipaque 300 Mg/ml) 70 ml 1X ONCE IV Last administered on 04/03/19at 09:30; Start 04/03/19 at 09:30; Stop 04/03/19 at 09:31; Status DC Info (CONTRAST GIVEN -- Rx MONITORING) 1 each PRN DAILY PRN MC SEE COMMENTS; Start 04/03/19 at 09:30; Stop 04/05/19 at 08:00; Status DC Throat Lozenges (Cepacol Sore Throat Lozenge) 1 drew PRN Q2HRS PRN PO SORE THROAT; Start 04/03/19 at 11:15 Ondansetron HCl (Zofran) 4 mg PRN Q6HRS PRN IVP NAUSEA/VOMITING; Start 04/03/19 at 11:15 Lidocaine HCl (Viscous Lidocaine) 15 ml PRN Q4HRS PRN SWSW MOUTH PAIN; Start 04/03/19 at 11:15 Calcium Carbonate/ Glycine (Tums) 500 mg PRN AFTMEALHC PRN PO INDIGESTION; Start 04/03/19 at 11:15 Pantoprazole Sodium (Protonix) 40 mg DAILYAC PO Last administered on 04/04/19at 07:56; Start 04/04/19 at 07:30 Zolpidem Tartrate (Ambien) 5 mg PRN QHS PRN PO INSOMNIA, MAY REPEAT IN 1HR; Start 04/03/19 at 11:15 Acetaminophen (Tylenol) 500 mg PRN Q6HRS PRN PO MILD PAIN / TEMP; Start 04/03/19 at 11:15 Tramadol HCl (Ultram) 50 mg PRN Q6HRS PRN PO MILD TO MODERATE PAIN; Start 04/03/19 at 11:15 Fentanyl Citrate (Fentanyl 2ml Vial) 50 mcg PRN Q2HR PRN IVP PAIN Last administered on 04/03/19at 14:57; Start 04/03/19 at 11:15 Albuterol Sulfate (Ventolin Neb Soln) 2.5 mg RTQID NEB Last administered on 04/05/19at 07:17; Start 04/03/19 at 12:00 Allopurinol (Zyloprim) 200 mg DAILY PO Last administered on 04/04/19at 07:58; Start 04/04/19 at 09:00 Aspirin (Children'S Aspirin) 81 mg DAILY PO Last administered on 04/04/19at 07:56; Start 04/04/19 at 09:00; Stop 04/04/19 at 08:40; Status DC Vitamin D (Vitamin D3) 1,000 unit DAILY PO Last administered on 04/04/19at 07:56; Start 04/04/19 at 09:00 Cyclobenzaprine HCl (Flexeril) 10 mg PRN TID PRN PO MUSCLE PAIN; Start 04/03/19 at 11:15 Acetaminophen/ Hydrocodone Bitart (Lortab 10/325) 1 tab PRN Q6HRS PRN PO SEVERE PAIN Last administered on 04/04/19at 17:43; Start 04/03/19 at 11:15 Acetaminophen/ Hydrocodone Bitart (Lortab 5/325) 1 tab PRN Q6HRS PRN PO MODERATE PAIN; Start 04/03/19 at 11:15 Indomethacin (Indocin) 25 mg PRN BID PRN PO INFLAMMATION/PAIN, 2nd CHOICE; Start 04/03/19 at 11:15; Stop 04/04/19 at 08:41; Status DC Lisinopril (Prinivil) 20 mg BID PO Last administered on 04/04/19at 22:13; Start 04/03/19 at 21:00 Metoprolol Tartrate (Lopressor) 50 mg BID PO Last administered on 04/04/19at 22:12; Start 04/03/19 at 21:00 Naproxen (Naprosyn) 500 mg PRN BID PRN PO INFLAMMATION/PAIN, 1st CHOICE Last administered on 04/03/19at 18:00; Start 04/03/19 at 11:15; Stop 04/04/19 at 08:41; Status DC Metformin HCl (Glucophage) 1,000 mg DAILYWBKFT PO ; Start 04/06/19 at 08:00; Stop 04/04/19 at 08:41; Status DC Sodium Chloride 1,000 ml @ 100 mls/hr 1X ONCE IV Last administered on 04/03/19at 12:38; Start 04/03/19 at 11:15; Stop 04/03/19 at 21:14; Status DC Clindamycin Phosphate 50 ml @ 100 mls/hr Q8HRS IV Last administered on 04/05/19at 05:31; Start 04/03/19 at 14:00 Piperacillin Sod/ Tazobactam Sod 3.375 gm/Sodium Chloride 50 ml @ 100 mls/hr Q6HRS IV Last administered on 04/05/19at 06:15; Start 04/03/19 at 12:00 Dexamethasone Sodium Phosphate (Decadron) 4 mg Q6HRS IVP Last administered on 04/05/19at 06:15; Start 04/03/19 at 12:00 Influenza Virus Vaccine Quadrival (Afluria Quad 2019-20 (3yr Up) Syringe) 0.5 ml ONCE ONCE VAX IM Last administered on 04/03/19at 19:32; Start 04/03/19 at 15:00; Stop 04/03/19 at 15:01; Status DC Insulin Human Lispro (HumaLOG) 0-9 UNITS TIDWMEALS SQ Last administered on 04/04/19at 17:21; Start 04/04/19 at 12:00 Dextrose (Dextrose 50%-Water Syringe) 12.5 gm PRN Q15MIN PRN IV SEE COMMENTS; Start 04/04/19 at 08:45 Iohexol (Omnipaque 300 Mg/ml) 70 ml 1X ONCE IV Last administered on 04/04/19at 09:15; Start 04/04/19 at 12:15; Stop 04/04/19 at 12:16; Status DC Info (CONTRAST GIVEN -- Rx MONITORING) 1 each PRN DAILY PRN MC SEE COMMENTS; Start 04/04/19 at 12:15; Stop 04/05/19 at 08:00; Status DC Iohexol (Omnipaque 300 Mg/ml) 70 ml 1X ONCE IV ; Start 04/05/19 at 08:00; Stop 04/05/19 at 08:01; Status DC Info (CONTRAST GIVEN -- Rx MONITORING) 1 each PRN DAILY PRN MC SEE COMMENTS; Start 04/05/19 at 08:15; Stop 04/07/19 at 08:14 Active Scripts Active Ondansetron Odt (Ondansetron) 4 Mg Tab.rapdis 1 Tab PO PRN Q6-8HRS PRN Keflex (Cephalexin) 500 Mg Capsule 1 Cap PO BID Naprosyn (Naproxen) 500 Mg Tablet 1 Tab PO BID PRN Cyclobenzaprine Hcl 10 Mg Tablet 10 Mg PO TID PRN Lortab 5-325 mg Tablet (Hydrocodone/Acetaminophen) 1 Each Tablet 1 Tab PO PRN Q6HRS PRN Ibuprofen 600 Mg Tablet 600 Mg PO PRN Q6HRS PRN Ciprofloxacin Hcl 500 Mg Tablet 500 Mg PO BID Reported Hydrocodone-Apap 10-325 (Hydrocodone Bit/Acetaminophen) 1 Each Tablet 1 Tab PO PRN Q6HRS PRN not given today 05/22 Aspirin 81 Mg Tab.chew 1 Tab PO DAILY LAST DOSE GIVEN: DATE: 05/21/15 TIME: 9 am NEXT DOSE DUE: DATE: 05/22/15 TIME: 9 am Vitamin D (Cholecalciferol (Vitamin D3)) 1,000 Unit Tablet 1,000 Unit PO DAILY LAST DOSE GIVEN: DATE: 05/21/15 TIME: 9 am NEXT DOSE DUE: DATE: 05/22/15 TIME: 9 am Metformin Hcl 1,000 Mg Tablet 1,000 Mg PO DAILYWBKFT LAST DOSE GIVEN: DATE: 05/21/15 TIME: 9 am NEXT DOSE DUE: DATE: 05/22/15 TIME: 9 am Albuterol Sulfate Neb Soln (Albuterol Sulfate) 2.5 Mg/3 Ml Vial.neb 2.5 Mg NEB QID LAST DOSE GIVEN: DATE: 05/21/15 TIME: 1200 noon NEXT DOSE DUE: DATE: 05/21/15 TIME: 4 pm Lisinopril 20 Mg Tablet 1 Tab PO BID LAST DOSE GIVEN: DATE: 05/21/15 TIME: 9 am NEXT DOSE DUE: DATE: 05/21/15 TIME: 9 pm Metoprolol Tartrate 25 Mg Tablet 50 Mg PO BID LAST DOSE GIVEN: DATE: 05/21/15 TIME: 9 am NEXT DOSE DUE: DATE: 05/21/15 TIME: 9 pm Indomethacin 25 Mg Capsule 1 Cap PO BID PRN not given today 05/22 Allopurinol 100 Mg Tablet 200 Mg PO DAILY LAST DOSE GIVEN: DATE: 05/21/15 TIME: 9 am NEXT DOSE DUE: DATE: 05/22/15 TIME: 9 am Vitals/I & O Vital Sign - Last 24 Hours 04/04/19 04/04/19 04/04/19 04/04/19 11:00 11:31 15:00 16:04 Temp 97.3 97.5 97.3 97.5 Pulse 77 89 Resp 16 16 B/P (MAP) 104/57 (73) 105/64 (78) Pulse Ox 95 94 96 97 O2 Delivery Room Air Room Air Room Air Room Air 04/04/19 04/04/19 04/04/19 04/04/19 17:43 18:43 19:47 19:51 Temp 97.5 97.5 Pulse 94 Resp 16 20 20 B/P (MAP) 113/71 (85) Pulse Ox 95 98 O2 Delivery Room Air Room Air Room Air Room Air 04/04/19 04/04/19 04/04/19 04/04/19 20:20 22:12 22:13 23:22 Temp 97.5 97.5 Pulse 94 94 82 Resp 16 B/P (MAP) 113/71 113/71 106/55 (72) Pulse Ox 94 O2 Delivery Room Air Room Air 04/05/19 04/05/19 04/05/196/19 03:13 07:00 07:18 07:30 Temp 98.0 97.7 98.0 97.7 Pulse 84 79 Resp 18 19 B/P (MAP) 114/74 (87) 120/63 (82) Pulse Ox 95 96 96 O2 Delivery Room Air Room Air Room Air Room Air Intake and Output 0 04/04/19 04/04/19 04/05/19 15:00 23:00 07:00 Intake Total 510 ml 370 ml 350 ml Balance 510 ml 370 ml 350 ml MARGARET HANKS MD Apr 05, 2019 09:48
--- NOTE | 2019-04-05 09:58 | RAD ---
EXAM: CT NECK SOFT TISSUES WITH CONTRAST. HISTORY: Abscess. TECHNIQUE: Computed tomography of the neck soft tissues was performed after the intravenous administration of iodinated contrast. COMPARISON: 04/03/2019. FINDINGS: Images of the lung apices reveal no acute abnormality. Bone windows reveal no suspicious lesions. There is a mucus retention cyst in the left maxillary sinus. Limited images of the brain and orbits reveal no abnormality. Enlarged right jugulodigastric lymph nodes measure up to 3.0 x 2.5 cm on image 52. This is mildly decreased from 3.5 x 2.6 cm previously. The main cortney conglomerate contains regions of low attenuation suggesting necrosis. Smaller lymph nodes are seen superior and inferior to this. Additional posterior cervical triangle nodes this level measure up to 16 x 11 mm and are unchanged. There are no clearly enlarged left-sided nodes. There is no clear parapharyngeal collection or retropharyngeal edema. No pharyngeal or laryngeal mass is identified. The parotid glands and submandibular glands are unremarkable. The thyroid gland reveals no focal lesions. IMPRESSION: 1. Enlarged right jugulodigastric lymph nodes have decreased in size slightly since the prior study. Hypoenhancing cortney regions suggestive of necrosis persistent but are less prominent. 2. No parapharyngeal or retropharyngeal collection. No primary mass is appreciated within the pharynx or larynx. Direct visualization could further evaluate if there is persistent concern. *One or more of the following individualized dose reduction techniques were utilized for this examination: 1. Automated exposure control. 2. Adjustment of the mA and/or kV according to patient size. 3. Use of iterative reconstruction technique. Electronically signed by: Ben Willard MD (04/05/2019 9:55 AM) [facility]
--- NOTE | 2019-04-05 10:18 | NUR ---
SW following. Discussed with RN, pt having CT of neck this morning. Plan determined by results, home vs OR, per RN. RN advised no SW needs at this time. SW will continue to follow for discharge planning needs.
[2019-04-05 10:44] VITALS: BP 122/68
[2019-04-05] MEDS: PANTOPRAZOLE 40 MG TABLET.DR. PO SCH (12:29)
[2019-04-05] MEDS: LISINOPRIL 20 MG TABLET PO SCH ×2 (12:29→20:43)
[2019-04-05] MEDS: METOPROLOL TART IMMED RELEASE 25 MG TABLET. PO SCH ×2 (12:30→20:44)
[2019-04-05] MEDS: ALLOPURINOL 100 MG TABLET. PO SCH (12:30)
[2019-04-05] MEDS: CHOLECALCIFEROL (VITAMIN D3) 1,000 UNIT TABLET PO SCH (12:30)
[2019-04-05 14:34] VITALS: BP 92/37
[2019-04-05] MEDS: HYDROcodone/APAP 10/325 1 TAB TABLET PO PRN (15:21)
--- NOTE | 2019-04-05 17:36 | PDOC ---
PROGRESS NOTES Subjective Subjective Patient reports that she continues to feel better today. Every day pain improves. Objective Objective Vital Signs Date Time Temp Pulse Resp B/P (MAP) Pulse Ox O2 Delivery O2 Flow Rate FiO2 04/05/19 16:29 96 Room Air 04/05/19 14:34 97.6 74 19 92/37 (55) 97.6 Intake and Output 04/05/19 07:00 Intake Total 1230 ml Balance 1230 ml Intake Oral 1030 ml IV Total 200 ml # Voids 6 # Bowel Movements 1 Physical Exam Physical Exam Gen: AAO X 3, NAD Head & Neck: Continued swelling of right level 2/3 neck, no further overlying erythema. OC/OP: 3+ tonsils, Visible caries in right posterior mandibular molar, floor of mouth, gingiva is soft and not indurated. COMMENT CT Neck (04/05/19): . Enlarged right jugulodigastric lymph nodes have decreased in size slightly since the prior study. Hypoenhancing cortney regions suggestive of necrosis persistent but are less prominent. 2. No parapharyngeal or retropharyngeal collection. No primary mass is appreciated within the pharynx or larynx. Direct visualization could further evaluate if there is persistent concern. wbc: 20 (patient on IV steroids) Assessment Assessment 39 year old female with overall improving right cervical adenitis with some underlying necrosis within lymph nodes. Abscess has not spread outside of lymph nodes and therefore, likely still to have adequate blood supply for antibiotics to be effective. Problems Medical Problems: (1) Cervical adenitis Status: Chronic (2) Fever Status: Acute (3) HTN (hypertension) Status: Chronic (4) Lymphadenopathy Status: Acute (5) Morbid obesity Status: Chronic (6) Neck abscess Status: Acute Plan Plan of Care - Continue IV antibiotics for another 1-2 days. Then plan to transition home with either IV or oral antibiotics. - Patient instructed to seek dentistry [facility] after hospital discharge for tooth extraction. - There is still possibility that symptoms can worsen and patient may require surgery in future. However, I feel that she is currently responding well to conservative measures. Comment Review of Relevant I have reviewed the following items libby (where applicable) has been applied. Labs Laboratory Tests Test 04/03/19 21:17 04/04/19 07:12 04/04/19 11:04 04/04/19 16:49 Glucose (Fingerstick) 186 mg/dL (70-99) 176 mg/dL (70-99) 235 mg/dL (70-99) 204 mg/dL (70-99) Test 04/05/19 04:25 04/05/19 07:36 04/05/19 11:35 04/05/19 16:26 White Blood Count 20.9 x10^3/uL (4.0-11.0) Red Blood Count 4.76 x10^6/uL (3.50-5.40) Hemoglobin 13.5 g/dL (12.0-15.5) Hematocrit 40.6 % (36.0-47.0) Mean Corpuscular Volume 85 fL (79-100) Mean Corpuscular Hemoglobin 28 pg (25-35) Mean Corpuscular Hemoglobin Concent 33 g/dL (31-37) Red Cell Distribution Width 13.8 % (11.5-14.5) Platelet Count 334 x10^3/uL (140-400) Neutrophils (%) (Auto) 85 % (31-73) Lymphocytes (%) (Auto) 9 % (24-48) Monocytes (%) (Auto) 6 % (0-9) Eosinophils (%) (Auto) 0 % (0-3) Basophils (%) (Auto) 0 % (0-3) Neutrophils # (Auto) 17.7 x10^3/uL (1.8-7.7) Lymphocytes # (Auto) 2.0 x10^3/uL (1.0-4.8) Monocytes # (Auto) 1.2 x10^3/uL (0.0-1.1) Eosinophils # (Auto) 0.0 x10^3/uL (0.0-0.7) Basophils # (Auto) 0.0 x10^3/uL (0.0-0.2) Segmented Neutrophils % 73 % (35-66) Band Neutrophils % 13 % (0-9) Lymphocytes % 9 % (24-48) Monocytes % 4 % (0-10) Myelocytes % 1 % (0-0) Platelet Estimate Adequate (ADEQUATE) Prothrombin Time 13.9 SEC (11.7-14.0) Prothromb Time International Ratio 1.1 (0.8-1.1) Sodium Level 142 mmol/L (136-145) Potassium Level 4.4 mmol/L (3.5-5.1) Chloride Level 106 mmol/L (98-107) Carbon Dioxide Level 27 mmol/L (21-32) Anion Gap 9 (6-14) Blood Urea Nitrogen 18 mg/dL (7-20) Creatinine 0.9 mg/dL (0.6-1.0) Estimated GFR (Cockcroft-Gault) 69.0 Glucose Level 139 mg/dL (70-99) Calcium Level 8.6 mg/dL (8.5-10.1) Glucose (Fingerstick) 128 mg/dL (70-99) 136 mg/dL (70-99) 162 mg/dL (70-99) Laboratory Tests Test 04/05/19 04:25 04/05/19 07:36 04/05/19 11:35 04/05/19 16:26 White Blood Count 20.9 x10^3/uL (4.0-11.0) Red Blood Count 4.76 x10^6/uL (3.50-5.40) Hemoglobin 13.5 g/dL (12.0-15.5) Hematocrit 40.6 % (36.0-47.0) Mean Corpuscular Volume 85 fL (79-100) Mean Corpuscular Hemoglobin 28 pg (25-35) Mean Corpuscular Hemoglobin Concent 33 g/dL (31-37) Red Cell Distribution Width 13.8 % (11.5-14.5) Platelet Count 334 x10^3/uL (140-400) Neutrophils (%) (Auto) 85 % (31-73) Lymphocytes (%) (Auto) 9 % (24-48) Monocytes (%) (Auto) 6 % (0-9) Eosinophils (%) (Auto) 0 % (0-3) Basophils (%) (Auto) 0 % (0-3) Neutrophils # (Auto) 17.7 x10^3/uL (1.8-7.7) Lymphocytes # (Auto) 2.0 x10^3/uL (1.0-4.8) Monocytes # (Auto) 1.2 x10^3/uL (0.0-1.1) Eosinophils # (Auto) 0.0 x10^3/uL (0.0-0.7) Basophils # (Auto) 0.0 x10^3/uL (0.0-0.2) Segmented Neutrophils % 73 % (35-66) Band Neutrophils % 13 % (0-9) Lymphocytes % 9 % (24-48) Monocytes % 4 % (0-10) Myelocytes % 1 % (0-0) Platelet Estimate Adequate (ADEQUATE) Prothrombin Time 13.9 SEC (11.7-14.0) Prothromb Time International Ratio 1.1 (0.8-1.1) Sodium Level 142 mmol/L (136-145) Potassium Level 4.4 mmol/L (3.5-5.1) Chloride Level 106 mmol/L (98-107) Carbon Dioxide Level 27 mmol/L (21-32) Anion Gap 9 (6-14) Blood Urea Nitrogen 18 mg/dL (7-20) Creatinine 0.9 mg/dL (0.6-1.0) Estimated GFR (Cockcroft-Gault) 69.0 Glucose Level 139 mg/dL (70-99) Calcium Level 8.6 mg/dL (8.5-10.1) Glucose (Fingerstick) 128 mg/dL (70-99) 136 mg/dL (70-99) 162 mg/dL (70-99) Microbiology 04/03/19 Throat Culture - Final, Complete 04/03/19 - Final, Complete 04/03/19 Blood Culture - Preliminary, Resulted NO GROWTH AFTER 2 DAYS Medications Current Medications Sodium Chloride 1,000 ml @ 100 mls/hr Q10H IV Last administered on 04/03/19at 10:20; Start 04/03/19 at 08:52; Stop 04/03/19 at 18:51; Status DC Iohexol (Omnipaque 300 Mg/ml) 70 ml 1X ONCE IV Last administered on 04/03/19at 09:30; Start 04/03/19 at 09:30; Stop 04/03/19 at 09:31; Status DC Info (CONTRAST GIVEN -- Rx MONITORING) 1 each PRN DAILY PRN MC SEE COMMENTS; Start 04/03/19 at 09:30; Stop 04/05/19 at 08:00; Status DC Throat Lozenges (Cepacol Sore Throat Lozenge) 1 drew PRN Q2HRS PRN PO SORE THROAT; Start 04/03/19 at 11:15 Ondansetron HCl (Zofran) 4 mg PRN Q6HRS PRN IVP NAUSEA/VOMITING; Start 04/03/19 at 11:15 Lidocaine HCl (Viscous Lidocaine) 15 ml PRN Q4HRS PRN SWSW MOUTH PAIN; Start 04/03/19 at 11:15 Calcium Carbonate/ Glycine (Tums) 500 mg PRN AFTMEALHC PRN PO INDIGESTION; Start 04/03/19 at 11:15 Pantoprazole Sodium (Protonix) 40 mg DAILYAC PO Last administered on 04/05/19at 12:29; Start 04/04/19 at 07:30 Zolpidem Tartrate (Ambien) 5 mg PRN QHS PRN PO INSOMNIA, MAY REPEAT IN 1HR; Start 04/03/19 at 11:15 Acetaminophen (Tylenol) 500 mg PRN Q6HRS PRN PO FEVER; Start 04/03/19 at 11:15 Tramadol HCl (Ultram) 50 mg PRN Q6HRS PRN PO MILD PAIN 1-3; Start 04/03/19 at 11:15 Fentanyl Citrate (Fentanyl 2ml Vial) 50 mcg PRN Q2HR PRN IVP PAIN Last administered on 04/03/19at 14:57; Start 04/03/19 at 11:15 Albuterol Sulfate (Ventolin Neb Soln) 2.5 mg RTQID NEB Last administered on 04/05/19at 15:34; Start 04/03/19 at 12:00 Allopurinol (Zyloprim) 200 mg DAILY PO Last administered on 04/05/19 12:30; Start 04/04/19 at 09:00 Aspirin (Children'S Aspirin) 81 mg DAILY PO Last administered on 04/04/19at 07:56; Start 04/04/19 at 09:00; Stop 04/04/19 at 08:40; Status DC Vitamin D (Vitamin D3) 1,000 unit DAILY PO Last administered on 04/05/19at 12:30; Start 04/04/19 at 09:00 Cyclobenzaprine HCl (Flexeril) 10 mg PRN TID PRN PO MUSCLE PAIN; Start 04/03/19 at 11:15 Acetaminophen/ Hydrocodone Bitart (Lortab 10/325) 1 tab PRN Q6HRS PRN PO SEVERE PAIN Last administered on 04/05/19at 15:21; Start 04/03/19 at 11:15 Acetaminophen/ Hydrocodone Bitart (Lortab 5/325) 1 tab PRN Q6HRS PRN PO MODERATE PAIN; Start 04/03/19 at 11:15 Indomethacin (Indocin) 25 mg PRN BID PRN PO INFLAMMATION/PAIN, 2nd CHOICE; Start 04/03/19 at 11:15; Stop 04/04/19 at 08:41; Status DC Lisinopril (Prinivil) 20 mg BID PO Last administered on 04/05/19at 12:29; Start 04/03/19 at 21:00 Metoprolol Tartrate (Lopressor) 50 mg BID PO Last administered on 04/05/19at 12:30; Start 04/03/19 at 21:00 Naproxen (Naprosyn) 500 mg PRN BID PRN PO INFLAMMATION/PAIN, 1st CHOICE Last administered on 04/03/19at 18:00; Start 04/03/19 at 11:15; Stop 04/04/19 at 08:41; Status DC Metformin HCl (Glucophage) 1,000 mg DAILYWBKFT PO ; Start 04/06/19 at 08:00; Stop 04/04/19 at 08:41; Status DC Sodium Chloride 1,000 ml @ 100 mls/hr 1X ONCE IV Last administered on 04/03/19at 12:38; Start 04/03/19 at 11:15; Stop 04/03/19 at 21:14; Status DC Clindamycin Phosphate 50 ml @ 100 mls/hr Q8HRS IV Last administered on 04/05/19at 14:07; Start 04/03/19 at 14:00 Piperacillin Sod/ Tazobactam Sod 3.375 gm/Sodium Chloride 50 ml @ 100 mls/hr Q6HRS IV Last administered on 04/05/19at 12:30; Start 04/03/19 at 12:00 Dexamethasone Sodium Phosphate (Decadron) 4 mg Q6HRS IVP Last administered on 04/05/19at 12:30; Start 04/03/19 at 12:00 Influenza Virus Vaccine Quadrival (Afluria Quad 2019-20 (3yr Up) Syringe) 0.5 ml ONCE ONCE VAX IM Last administered on 04/03/19at 19:32; Start 04/03/19 at 15:00; Stop 04/03/19 at 15:01; Status DC Insulin Human Lispro (HumaLOG) 0-9 UNITS TIDWMEALS SQ Last administered on 04/04/19at 17:21; Start 04/04/19 at 12:00 Dextrose (Dextrose 50%-Water Syringe) 12.5 gm PRN Q15MIN PRN IV SEE COMMENTS; Start 04/04/19 at 08:45 Iohexol (Omnipaque 300 Mg/ml) 70 ml 1X ONCE IV Last administered on 04/04/19at 09:15; Start 04/04/19 at 12:15; Stop 04/04/19 at 12:16; Status DC Info (CONTRAST GIVEN -- Rx MONITORING) 1 each PRN DAILY PRN MC SEE COMMENTS; Start 04/04/19 at 12:15; Stop 04/05/19 at 08:00; Status DC Iohexol (Omnipaque 300 Mg/ml) 70 ml 1X ONCE IV ; Start 04/05/19 at 08:00; Stop 04/05/19 at 08:01; Status DC Info (CONTRAST GIVEN -- Rx MONITORING) 1 each PRN DAILY PRN MC SEE COMMENTS; Start 04/05/19 at 08:15; Stop 04/07/19 at 08:14 Metformin HCl (Glucophage) 1,000 mg DAILYWBKFT PO ; Start 04/08/19 at 08:00 Active Scripts Active Ondansetron Odt (Ondansetron) 4 Mg Tab.rapdis 1 Tab PO PRN Q6-8HRS PRN Keflex (Cephalexin) 500 Mg Capsule 1 Cap PO BID Naprosyn (Naproxen) 500 Mg Tablet 1 Tab PO BID PRN Cyclobenzaprine Hcl 10 Mg Tablet 10 Mg PO TID PRN Lortab 5-325 mg Tablet (Hydrocodone/Acetaminophen) 1 Each Tablet 1 Tab PO PRN Q6HRS PRN Ibuprofen 600 Mg Tablet 600 Mg PO PRN Q6HRS PRN Ciprofloxacin Hcl 500 Mg Tablet 500 Mg PO BID Reported Hydrocodone-Apap 10-325 (Hydrocodone Bit/Acetaminophen) 1 Each Tablet 1 Tab PO PRN Q6HRS PRN not given today 05/22 Aspirin 81 Mg Tab.chew 1 Tab PO DAILY LAST DOSE GIVEN: DATE: 05/21/15 TIME: 9 am NEXT DOSE DUE: DATE: 05/22/15 TIME: 9 am Vitamin D (Cholecalciferol (Vitamin D3)) 1,000 Unit Tablet 1,000 Unit PO DAILY LAST DOSE GIVEN: DATE: 05/21/15 TIME: 9 am NEXT DOSE DUE: DATE: 05/22/15 TIME: 9 am Metformin Hcl 1,000 Mg Tablet 1,000 Mg PO DAILYWBKFT LAST DOSE GIVEN: DATE: 05/21/15 TIME: 9 am NEXT DOSE DUE: DATE: 05/22/15 TIME: 9 am Albuterol Sulfate Neb Soln (Albuterol Sulfate) 2.5 Mg/3 Ml Vial.neb 2.5 Mg NEB QID LAST DOSE GIVEN: DATE: 05/21/15 TIME: 1200 noon NEXT DOSE DUE: DATE: 05/21/15 TIME: 4 pm Lisinopril 20 Mg Tablet 1 Tab PO BID LAST DOSE GIVEN: DATE: 05/21/15 TIME: 9 am NEXT DOSE DUE: DATE: 05/21/15 TIME: 9 pm Metoprolol Tartrate 25 Mg Tablet 50 Mg PO BID LAST DOSE GIVEN: DATE: 05/21/15 TIME: 9 am NEXT DOSE DUE: DATE: 05/21/15 TIME: 9 pm Indomethacin 25 Mg Capsule 1 Cap PO BID PRN not given today 05/22 Allopurinol 100 Mg Tablet 200 Mg PO DAILY LAST DOSE GIVEN: DATE: 05/21/15 TIME: 9 am NEXT DOSE DUE: DATE: 05/22/15 TIME: 9 am Vitals/I & O Vital Sign - Last 24 Hours 04/04/19 04/04/19 04/04/19 04/04/19 17:43 18:43 19:47 19:51 Temp 97.5 97.5 Pulse 94 Resp 16 20 20 B/P (MAP) 113/71 (85) Pulse Ox 95 98 O2 Delivery Room Air Room Air Room Air Room Air 04/04/19 04/04/19 04/04/19 04/04/19 20:20 22:12 22:13 23:22 Temp 97.5 97.5 Pulse 94 94 82 Resp 16 B/P (MAP) 113/71 113/71 106/55 (72) Pulse Ox 94 O2 Delivery Room Air Room Air 04/05/19 04/05/19 04/05/19 04/05/19 03:13 07:00 07:18 07:30 Temp 98.0 97.7 98.0 97.7 Pulse 84 79 Resp 18 19 B/P (MAP) 114/74 (87) 120/63 (82) Pulse Ox 95 96 96 O2 Delivery Room Air Room Air Room Air Room Air 04/05/19 04/05/19 04/05/19 04/05/19 10:44 10:44 12:29 12:30 Temp 97.8 97.8 Pulse 80 80 80 Resp 19 B/P (MAP) 122/68 (86) 122/68 122/68 Pulse Ox 98 O2 Delivery Room Air Room Air 04/05/19 04/05/19 04/05/19 14:34 15:34 16:29 Temp 97.6 97.6 Pulse 74 Resp 19 B/P (MAP) 92/37 (55) Pulse Ox 96 96 O2 Delivery Room Air Room Air Room Air Intake and Output 04/04/19 04/04/19 04/05/19 15:00 23:00 07:00 Intake Total 510 ml 370 ml 350 ml Balance 510 ml 370 ml 350 ml VICTORINO GOMEZ MD Apr 05, 2019 17:36
[2019-04-05 19:00] VITALS: BP 101/58
[2019-04-05 23:00] VITALS: BP 104/52
[2019-04-06] MEDS: PIPERACILLIN/TAZOBACTAM 3.375 GM in IV NORMAL SALINE 50ML 50 ML IV SCH ×2 (00:05→06:36)
[2019-04-06] MEDS: DEXAMETHASONE SOD PHOS 4 MG/ML VIAL IVP SCH ×3 (00:05→11:32)
[2019-04-06 03:00] VITALS: BP 123/58
[2019-04-06] MEDS: CLINDAMYCIN 600MG PREMIX 50 ML IV SCH (05:30)
[2019-04-06 07:00] VITALS: BP 115/70
[2019-04-06] MEDS: ALBUTEROL SULFATE 2.5 MG/3 ML NEBU. NEB SCH ×2 (07:16→11:38)
[2019-04-06] MEDS ORDERED: metFORMIN 500 MG TABLET PO SCH (08:00)
[2019-04-06] MEDS: INSULIN LISPRO 300 UNITS/3 ML VIAL. SQ SCH ×2 (08:00→11:37)
[2019-04-06] MEDS: METOPROLOL TART IMMED RELEASE 25 MG TABLET. PO SCH (08:30)
[2019-04-06] MEDS: CHOLECALCIFEROL (VITAMIN D3) 1,000 UNIT TABLET PO SCH (08:31)
[2019-04-06] MEDS: LISINOPRIL 20 MG TABLET PO SCH (08:31)
[2019-04-06] MEDS: PANTOPRAZOLE 40 MG TABLET.DR. PO SCH (08:31)
[2019-04-06] MEDS: ALLOPURINOL 100 MG TABLET. PO SCH (08:31)
[2019-04-06] MEDS ORDERED: NAPR-683 PO (08:46)
[2019-04-06] MEDS ORDERED: HYDR-2769 PO (08:46)
[2019-04-06] MEDS ORDERED: DEXA4TAB63 PO (08:46)
[2019-04-06 11:00] VITALS: BP 112/56
--- NOTE | 2019-04-06 12:08 | PDOC3 ---
Discharge Summary Visit Information Date of Admission: Apr 03, 2019 Date of Discharge: Apr 06, 2019 Admitting Diagnosis Comment: CERvical adenitis with small abscess, strep neg, heterophil neg INfected wisdom tooth MOrbid obesity BMI 66 FEvers HTN, DM on meds Final Diagnosis Problems Medical Problems: (1) Cervical adenitis Status: Chronic (2) Fever Status: Acute (3) HTN (hypertension) Status: Chronic (4) Lymphadenopathy Status: Acute (5) Morbid obesity Status: Chronic (6) Neck abscess Status: Acute Brief Hospital Course Allergies Allergies Coded Allergies Type Severity Reaction Last Updated Verified Latex, Natural Rubber Allergy Intermediate Rash 04/03/16 Yes oxycodone Allergy Intermediate Hives 04/03/16 Yes Vital Signs Vital Signs Date Time Temp Pulse Resp B/P (MAP) Pulse Ox O2 Delivery O2 Flow Rate FiO2 04/06/19 11:38 94 Room Air 04/06/19 11:00 98.0 69 18 112/56 (74) 98.0 Lab Results Laboratory Tests Test 04/04/19 16:49 04/05/19 04:25 04/05/19 07:36 04/05/19 11:35 Glucose (Fingerstick) 204 mg/dL (70-99) 128 mg/dL (70-99) 136 mg/dL (70-99) White Blood Count 20.9 x10^3/uL (4.0-11.0) Red Blood Count 4.76 x10^6/uL (3.50-5.40) Hemoglobin 13.5 g/dL (12.0-15.5) Hematocrit 40.6 % (36.0-47.0) Mean Corpuscular Volume 85 fL (79-100) Mean Corpuscular Hemoglobin 28 pg (25-35) Mean Corpuscular Hemoglobin Concent 33 g/dL (31-37) Red Cell Distribution Width 13.8 % (11.5-14.5) Platelet Count 334 x10^3/uL (140-400) Neutrophils (%) (Auto) 85 % (31-73) Lymphocytes (%) (Auto) 9 % (24-48) Monocytes (%) (Auto) 6 % (0-9) Eosinophils (%) (Auto) 0 % (0-3) Basophils (%) (Auto) 0 % (0-3) Neutrophils # (Auto) 17.7 x10^3/uL (1.8-7.7) Lymphocytes # (Auto) 2.0 x10^3/uL (1.0-4.8) Monocytes # (Auto) 1.2 x10^3/uL (0.0-1.1) Eosinophils # (Auto) 0.0 x10^3/uL (0.0-0.7) Basophils # (Auto) 0.0 x10^3/uL (0.0-0.2) Segmented Neutrophils % 73 % (35-66) Band Neutrophils % 13 % (0-9) Lymphocytes % 9 % (24-48) Monocytes % 4 % (0-10) Myelocytes % 1 % (0-0) Platelet Estimate Adequate (ADEQUATE) Prothrombin Time 13.9 SEC (11.7-14.0) Prothromb Time International Ratio 1.1 (0.8-1.1) Sodium Level 142 mmol/L (136-145) Potassium Level 4.4 mmol/L (3.5-5.1) Chloride Level 106 mmol/L (98-107) Carbon Dioxide Level 27 mmol/L (21-32) Anion Gap 9 (6-14) Blood Urea Nitrogen 18 mg/dL (7-20) Creatinine 0.9 mg/dL (0.6-1.0) Estimated GFR (Cockcroft-Gault) 69.0 Glucose Level 139 mg/dL (70-99) Calcium Level 8.6 mg/dL (8.5-10.1) Test 04/05/19 16:26 04/05/19 20:29 04/06/19 07:55 04/06/19 10:57 Glucose (Fingerstick) 162 mg/dL (70-99) 140 mg/dL (70-99) 132 mg/dL (70-99) 205 mg/dL (70-99) Laboratory Tests Test 04/05/19 16:26 04/05/19 20:29 04/06/19 07:55 04/06/19 10:57 Glucose (Fingerstick) 162 mg/dL (70-99) 140 mg/dL (70-99) 132 mg/dL (70-99) 205 mg/dL (70-99) Brief Hospital Course Ms. Rodriguez is a 39 old obese AA female, who could not swallow clinda pills bec of signif neck pain and swelling and CT soft tissue does prove and show the swelling plus small abscesses, CO managed with ENT, I also added some decadron and interval soft tissue CT shows improvement in swelling, SHe is able to swallow pills now and gi soft, COmfortable going home today on po clinda, i wrote some rx decadron and some pain meds consults: ENT Proc: none Discharge Information Condition at Discharge: Improved, Stable Follow Up: Weeks (ff up ent ) Disposition/Orders: D/C to Home Scheduled Albuterol Sulfate (Albuterol Sulfate Neb Soln) 2.5 Mg/3 Ml Vial.neb, 2.5 MG NEB QID for FOR ASTHMA, Ref 0 (Reported) LAST DOSE GIVEN: DATE: 05/21/15 TIME: 1200 noon NEXT DOSE DUE: DATE: 05/21/15 TIME: 4 pm Entered as Reported by: Rosalia Andrade on 05/18/151809 Last Action: Continued on 04/03/191114 by MARGARET HANKS Allopurinol (Allopurinol) 100 Mg Tablet, 200 MG PO DAILY, (Reported) LAST DOSE GIVEN: DATE: 05/21/15 TIME: 9 am NEXT DOSE DUE: DATE: 05/22/15 TIME: 9 am Entered as Reported by: Rosalia Andrade on 05/18/151809 Last Action: Continued on 04/03/191114 by MARGARET HANKS Aspirin (Aspirin) 81 Mg Tab.chew, 1 TAB PO DAILY, #30 Ref 3 (Reported) LAST DOSE GIVEN: DATE: 05/21/15 TIME: 9 am NEXT DOSE DUE: DATE: 05/22/15 TIME: 9 am Entered as Reported by: Rosalia Andrade on 05/18/151809 Last Action: Continued on 04/03/191114 by MARGARET HANKS Cholecalciferol (Vitamin D3) (Vitamin D) 1,000 Unit Tablet, 1,000 UNIT PO DAILY, (Reported) LAST DOSE GIVEN: DATE: 05/21/15 TIME: 9 am NEXT DOSE DUE: DATE: 05/22/15 TIME: 9 am Entered as Reported by: Rosalia Andrade on 05/18/151809 Last Action: Continued on 04/03/191114 by MARGARET HANKS Dexamethasone (Decadron) 4 Mg Tablet, 1 TAB PO BID for cervical adenitis for 3 Days, #6 Ref 0 Prescribed by: MARGARET HANKS on 04/06/19 0846 Lisinopril (Lisinopril) 20 Mg Tablet, 1 TAB PO BID, #30 Ref 5 (Reported) LAST DOSE GIVEN: DATE: 05/21/15 TIME: 9 am NEXT DOSE DUE: DATE: 05/21/15 TIME: 9 pm Entered as Reported by: Rosalia Andrade on 05/18/151809 Last Action: Continued on 04/03/191114 by MARGARET HANKS Metformin Hcl (Metformin Hcl) 1,000 Mg Tablet, 1,000 MG PO DAILYWBKFT for ANTI- DIABETIC, Ref 0 (Reported) LAST DOSE GIVEN: DATE: 05/21/15 TIME: 9 am NEXT DOSE DUE: DATE: 05/22/15 TIME: 9 am Entered as Reported by: Rosalia Andrade on 05/18/151809 Last Action: Converted on 04/03/191114 by MARGARET HANKS Metoprolol Tartrate (Metoprolol Tartrate) 25 Mg Tablet, 50 MG PO BID for FOR HYPERTENSION, #60 Ref 0 (Reported) LAST DOSE GIVEN: DATE: 05/21/15 TIME: 9 am NEXT DOSE DUE: DATE: 05/21/15 TIME: 9 pm Entered as Reported by: Rosalia Andrade on 05/18/151809 Last Action: Continued on 04/03/191114 by MARGARET HANKS Scheduled PRN Cyclobenzaprine Hcl (Cyclobenzaprine Hcl) 10 Mg Tablet, 10 MG PO TID PRN for MUSCLE PAIN, #30 Prescribed by: MARILIA JUAREZ on 07/19/171704 Last Action: Continued on 04/03/191114 by MARGARET HANKS Hydrocodone Bit/Acetaminophen (Hydrocodone-Apap 10-325 ) 1 Each Tablet, 1 TAB PO PRN Q6HRS PRN for PAIN, #20 Ref 0 not given today 05/22 Prescribed by: MARGARET HANKS on 04/06/19 0846 Naproxen (Naprosyn) 500 Mg Tablet, 1 TAB PO BID PRN for PAIN, #20 Ref 0 Prescribed by: MARGARET HANKS on 04/06/19 0846 Ondansetron (Ondansetron Odt) 4 Mg Tab.rapdis, 1 TAB PO PRN Q6-8HRS PRN for NAUSEA, #8 Ref 0 Prescribed by: EUNICE ROSARIO APRN on 07/18/182144 Last Action: HELD on 04/03/191114 by MARGARET HANKS Discontinued Medications Cephalexin (Keflex) 500 Mg Capsule, 1 CAP PO BID, #14 Ref 0 Prescribed by: EUNICE ROSARIO APRN on 07/18/182144 Last Action: HELD on 04/03/191114 by MARGARET HANKS Ciprofloxacin Hcl (Ciprofloxacin Hcl) 500 Mg Tablet, 500 MG PO BID, #10 Prescribed by: ARTIE CHRISTOPHER MD on 05/21/15 120 Last Action: HELD on 04/03/191114 by MARGARET HANKS Hydrocodone/Acetaminophen (Lortab 5-325 mg Tablet) 1 Each Tablet, 1 TAB PO PRN Q6HRS PRN for PAIN, #6 Prescribed by: AHMET MCDUFFIE MD on 04/03/161811 Last Action: Continued on 04/03/191114 by MARGARET HANKS Ibuprofen (Ibuprofen) 600 Mg Tablet, 600 MG PO PRN Q6HRS PRN for INFLAMMATION, #20 Prescribed by: AHMET MCDUFFIE MD on 04/03/161811 Last Action: HELD on 04/03/191114 by MARGARET HANKS Indomethacin (Indomethacin) 25 Mg Capsule, 1 CAP PO BID PRN for PER PROTOCOL, #28 (Reported) not given today 05/22 Entered as Reported by: Rosalia Andrade on 05/18/151809 Last Action: Continued on 04/03/191114 by MARGARET WISEMAN MD Apr 06, 2019 12:08
--- NOTE | 2019-04-06 12:23 | NUR ---
Discharge instructions reviewed with patient, verbalized understanding. Patient was escorted out via wheelchair by Louann HERNANDEZ.
[2019-04-08] MEDS ORDERED: metFORMIN 500 MG TABLET PO SCH (08:00)
== END 2019-04-06 12:25 | disposition home or self-care (01) | DRG 815 ==
LOC: ER 08:28 → 4 NORTH 11:15
PROVIDERS: ADMIT Internal Medicine; ATTEND Internal Medicine
DX: L04.0 Acute lymphadenitis of face, head and neck (principal); Z68.44 Body mass index [BMI] 60.0-69.9, adult; E11.9 Type 2 diabetes mellitus without complications; I10 Essential (primary) hypertension; J45.909 Unspecified asthma, uncomplicated; M10.9 Gout, unspecified; K04.7 Periapical abscess without sinus; E66.01 Morbid (severe) obesity due to excess calories; R13.10 Dysphagia, unspecified; Z88.5 Allergy status to narcotic agent; Z91.040 Latex allergy status; Z82.49 Family history of ischemic heart disease and other diseases of the circulatory system
CPT/HCPCS: 36415; 70491; 80048; 80053; 82962; 83605; 85007; 85025; 85610; 85651; 86308; 87040; 87070; 87880; 90471; 90686; 94640; 94760; 96360; 96361; J1100; J1815; J2543; J3010; J3490; J7030; J7613; Q9967; 99285-25; G0378

== ENCOUNTER 2019-07-04 16:08 | Emergency (ER) | payer OTHER ==
[~2019-07-04] VITALS: Ht 167.6 cm; Wt 172.4 kg
[~2019-07-04 16:08] MED LIST changes: +DEXA4TAB63 PO
[2019-07-04 16:35] VITALS: BP 126/72
[2019-07-04] MEDS ORDERED: KETOROLAC TROMETHAMINE 10 MG TABLET PO STA (16:56)
--- NOTE | 2019-07-04 17:12 | PHYS DOC ---
Past Medical History Past Medical History: Asthma, Diabetes-Type II, Hypertension, Other Additional Past Medical Histor: Gout, obesity Past Surgical History: Cholecystectomy Alcohol Use: None Drug Use: None Adult General Chief Complaint Chief Complaint: MECHANICAL FALL HPI HPI Patient is a 39 year old female who presents after slipping on water on some concrete 45 minutes prior to arrival. The patient states she is having diffuse back pain from the neck down to tail bone. She also having right hand pain, and bilateral ankle pain. She rates her pain as 10/10 in severity. Denies additional symptoms. Complete ROS were reviewed and found to be within normal limits, except as documented in the HPI Current Medications Current Medications Current Medications Medications (Trade) Dose Ordered Sig/Jalyn Start Time Stop Time Status Last Admin Dose Admin Ketorolac Tromethamine (Toradol) 10 mg 1X STAT 07/04/19 16:56 07/04/19 17:00 DC 07/04/19 17:31 10 MG Allergies Allergies Allergies Coded Allergies Type Severity Reaction Last Updated Verified Latex, Natural Rubber Allergy Intermediate Rash 04/03/16 Yes oxycodone Allergy Intermediate Hives 04/03/16 Yes Physical Exam Physical Exam Constitutional: Well developed, well nourished, no acute distress, non-toxic appearance. [] HENT: Normocephalic, atraumatic, bilateral external ears normal, oropharynx moist, no oral exudates, nose normal. [] Eyes: PERRLA, EOMI, conjunctiva normal, no discharge. [] Neck: Normal range of motion, no tenderness, supple, no stridor. [] Skin: Warm, dry, no erythema, no rash. [] Back: diffuse back tenderness, c,t,l, no stepoffs. Extremities: Tenderness to bilateral ankles, with mild edema, tenderness to right hand superior to 5th digit, with no edema. Neurologic: Alert and oriented X 3, normal motor function, normal sensory function, no focal deficits noted. [] Psychologic: Affect normal, judgement normal, mood normal. [] Current Patient Data Vital Signs Vital Signs Date Time Temp Pulse Resp B/P (MAP) Pulse Ox O2 Delivery O2 Flow Rate FiO2 07/04/19 16:35 97.7 88 22 126/72 (90) 97 Room Air 97.7 EKG EKG [] Radiology/Procedures Radiology/Procedures [facility] [address] [place] [address] IMAGING REPORT Signed PATIENT: CARINE DELACRUZ LACCOUNT: [id number] : 1980 LOCATION: ER AGE: 39 SEX: F EXAM STATUS: REG ER ORD. PHYSICIAN: MAC THOMAS APRN REASON: fall, BACK PAIN PROCEDURE: CT CERVICAL SPINE WO CONTRAST EXAM: CT Cervical, Thoracic, and Lumbar Spine Without Contrast CLINICAL HISTORY: Fall, BACK PAIN COMPARISON: None available. TECHNIQUE: This CT study consists of contiguous axial images performed through the Cervical, Thoracic and Lumbar spine. Axial, Sagittal and coronal reformatted images were also performed. PQRS compliance statement - One or more of the following individualized dose reduction techniques were utilized for this study: 1. Automated exposure control 2. Adjustment of the mA and/or kV according to patient size 3. Use of iterative reconstruction technique FINDINGS: Evaluation of the lumbar spine is markedly limited given extensive photon starvation artifact and limited penetration with resultant quantum mottling. 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 Cervical, thoracic and lumbar body heights are preserved. No evidence for acute fracture. Multilevel Schmorl's nodes are seen. Leftward curvature thoracic spine, apex T2. No spondylolisthesis of the cervical, thoracic or lumbar spine. Intervertebral disc heights are grossly preserved, particularly at the mid and lower thoracic spine. Mild L5-S1 disc height loss. Small multilevel endplate osteophytes particularly in the mid thoracic spine. There is no evidence of osseous spinal canal or neural foraminal stenosis. Bilateral maxillary sinus opacification, likely sinusitis. Prominent superficial and deep cervical chain lymph nodes are seen. 1.7 x 1.2 cm left adrenal nodule is seen. Moderate colonic stool content is partially profiled. Bladder is markedly distended. This can be correlated for possible voluntary or involuntary causes of urinary retention. IMPRESSION: 1. Markedly limited evaluation of the lumbar spine given limited penetration and quantum mottle artifact. Within these constraints: 2. No evidence of fracture or subluxation within the cervical, thoracic or lumbar spine. If there is persistent clinical concern for lumbar spine pathology, further evaluation with MRI is recommended given artifact described in subpoint 1. 3. Multilevel degenerative changes most prominent at the mid thoracic spine. 4. 1.7 x 1.2 cm left adrenal nodule is seen. 5. Mildly prominent superficial and deep cervical chain lymph nodes, possibly reactive. 6. Bladder is markedly distended. This can be correlated for possible voluntary or involuntary causes of urinary retention. Electronically signed by: Jaime Hoffmann MD (07/04/2019 5:54 PM) [id number] DICTATED and SIGNED BY: JAIME HOFFMANN MD DATE: 07/04/19 [address] [id number] IMAGING REPORT Signed PATIENT: CARINE DELACRUZ LACCOUNT: [id number] : 1980 LOCATION: ER AGE: 39 SEX: F EXAM STATUS: REG ER ORD. PHYSICIAN: MAC THOMAS APRN REASON: fall PROCEDURE: HAND RIGHT 3V EXAM: PA, oblique and lateral views of the right hand DATE: 07/04/2019 4:56 PM INDICATION: Fall, right hand pain COMPARISON: No Prior FINDINGS: Moderate soft tissue swelling about the thumb, index and long fingers as well as about the dorsal aspect of the distal metacarpals and about the wrist. There is foreshortening of the fourth metacarpal suspicious for fracture at the base. This can be correlated with patient's symptoms and if further imaging is required, CT would provide additional details. Nondisplaced fracture at the medial aspect of the hamate, possibly chronic. Multifocal degenerative changes are seen. IMPRESSION: 1. Fourth metacarpal foreshortening, likely associated 4th metacarpal base fracture. This can be correlated with patients symptoms and can be confirmed by CT as clinically indicated. 2. Medial hamate fracture, age indeterminate. 3. Diffuse soft tissue swelling. 4. Multifocal degenerative changes are seen. Electronically signed by: Jaime Hoffmann MD (07/04/2019 5:28 PM) [id number] DICTATED and SIGNED BY: JAIME HOFFMANN MD DATE: 07/04/19 1728 [][address] [address] IMAGING REPORT Signed PATIENT: CARINE DELACRUZ ACCOUNT: [id number] : 1980 LOCATION: ER AGE: 39 SEX: F EXAM STATUS: REG ER ORD. PHYSICIAN: MAC THOMAS APRN REASON: fall PROCEDURE: ANKLE BILAT 3V EXAM: 3 views of the bilateral ankle DATE: 07/04/2019 4:56 PM INDICATION: fall bilateral ankle pain. COMPARISON: No Prior FINDINGS: No acute fracture or dislocation. Ankle mortise is congruent. Talar dome is intact. Ankle joint and talonavicular joint degenerative changes. Diffuse soft tissue swelling about the ankles bilaterally. Calcaneal enthesopathy. Decreased bone mineral density. IMPRESSION: 1. No acute fracture or dislocation. 2. Decreased bone mineral density. 3. Multifocal degenerative changes are seen. Electronically signed by: Jaime Hoffmann MD (07/04/2019 5:33 PM) [id number] DICTATED and SIGNED BY: JAIME HOFFMANN MD DATE: 07/04/19 1733 Course & Med Decision Making Course & Med Decision Making Pertinent Labs and Imaging studies reviewed. (See chart for details) Will get Imaging and will give Toradol. Imaging shows 4th Metacarpal base fracture in R hand. Will have placed in Ulnar Gutter splint. Dragon Disclaimer Dragon Disclaimer This electronic medical record was generated, in whole or in part, using a voice recognition dictation system. Departure Departure Impression: Primary Impression: Closed fracture of 4th metacarpal Disposition: 01 HOME, SELF-CARE Condition: STABLE Referrals: IGOR HAMPTON MD (PCP) SAM LEIGH MD Patient Instructions: Hand Fracture, Metacarpals Additional Instructions: Thank you for visiting [facility]. We appreciate you trusting us with your care. If any additional problems come up don't hesitate to return to visit us. Please follow up with your primary care provider so they can plan additional care if needed and know about the problem that you had. If symptoms worsen come back to the Emergency Department. Any concerning symptoms that start such as chest pain, shortness of air, weakness or numbness on one side of the body, running high fevers or any other concerning symptoms return to the ER. Problem Qualifiers Primary Impression: Closed fracture of 4th metacarpal Encounter type: initial encounter Metacarpal location: base Fracture alignment: nondisplaced Laterality: right Qualified Codes: S62.344A - Nondisplaced fracture of base of fourth metacarpal bone, right hand, initial encounter for closed fracture MAC THOMAS APRN Jul 04, 2019 17:12
--- NOTE | 2019-07-04 17:31 | RAD ---
EXAM: PA, oblique and lateral views of the right hand DATE: 07/04/2019 4:56 PM INDICATION: Fall, right hand pain COMPARISON: No Prior FINDINGS: Moderate soft tissue swelling about the thumb, index and long fingers as well as about the dorsal aspect of the distal metacarpals and about the wrist. There is foreshortening of the fourth metacarpal suspicious for fracture at the base. This can be correlated with patient's symptoms and if further imaging is required, CT would provide additional details. Nondisplaced fracture at the medial aspect of the hamate, possibly chronic. Multifocal degenerative changes are seen. IMPRESSION: 1. Fourth metacarpal foreshortening, likely associated 4th metacarpal base fracture. This can be correlated with patients symptoms and can be confirmed by CT as clinically indicated. 2. Medial hamate fracture, age indeterminate. 3. Diffuse soft tissue swelling. 4. Multifocal degenerative changes are seen. Electronically signed by: Jaime Uriarte MD (07/04/2019 5:28 PM) [id number]
--- NOTE | 2019-07-04 17:36 | RAD ---
EXAM: 3 views of the bilateral ankle DATE: 07/04/2019 4:56 PM INDICATION: fall bilateral ankle pain. COMPARISON: No Prior FINDINGS: No acute fracture or dislocation. Ankle mortise is congruent. Talar dome is intact. Ankle joint and talonavicular joint degenerative changes. Diffuse soft tissue swelling about the ankles bilaterally. Calcaneal enthesopathy. Decreased bone mineral density. IMPRESSION: 1. No acute fracture or dislocation. 2. Decreased bone mineral density. 3. Multifocal degenerative changes are seen. Electronically signed by: Jaime Uriarte MD (07/04/2019 5:33 PM) [id number]
--- NOTE | 2019-07-04 17:57 | RAD ---
EXAM: CT Cervical, Thoracic, and Lumbar Spine Without Contrast CLINICAL HISTORY: Fall, BACK PAIN COMPARISON: None available. TECHNIQUE: This CT study consists of contiguous axial images performed through the Cervical, Thoracic and Lumbar spine. Axial, Sagittal and coronal reformatted images were also performed. PQRS compliance statement - One or more of the following individualized dose reduction techniques were utilized for this study: 1. Automated exposure control 2. Adjustment of the mA and/or kV according to patient size 3. Use of iterative reconstruction technique FINDINGS: Evaluation of the lumbar spine is markedly limited given extensive photon starvation artifact and limited penetration with resultant quantum mottling. 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 Cervical, thoracic and lumbar body heights are preserved. No evidence for acute fracture. Multilevel Schmorl's nodes are seen. Leftward curvature thoracic spine, apex T2. No spondylolisthesis of the cervical, thoracic or lumbar spine. Intervertebral disc heights are grossly preserved, particularly at the mid and lower thoracic spine. Mild L5-S1 disc height loss. Small multilevel endplate osteophytes particularly in the mid thoracic spine. There is no evidence of osseous spinal canal or neural foraminal stenosis. Bilateral maxillary sinus opacification, likely sinusitis. Prominent superficial and deep cervical chain lymph nodes are seen. 1.7 x 1.2 cm left adrenal nodule is seen. Moderate colonic stool content is partially profiled. Bladder is markedly distended. This can be correlated for possible voluntary or involuntary causes of urinary retention. IMPRESSION: 1. Markedly limited evaluation of the lumbar spine given limited penetration and quantum mottle artifact. Within these constraints: 2. No evidence of fracture or subluxation within the cervical, thoracic or lumbar spine. If there is persistent clinical concern for lumbar spine pathology, further evaluation with MRI is recommended given artifact described in subpoint 1. 3. Multilevel degenerative changes most prominent at the mid thoracic spine. 4. 1.7 x 1.2 cm left adrenal nodule is seen. 5. Mildly prominent superficial and deep cervical chain lymph nodes, possibly reactive. 6. Bladder is markedly distended. This can be correlated for possible voluntary or involuntary causes of urinary retention. Electronically signed by: Jaime Uriarte MD (07/04/2019 5:54 PM) [id number]
== END 2019-07-04 18:25 | disposition home or self-care (01) ==
LOC: ER 16:08
DX: S62.344A Nondisplaced fracture of base of fourth metacarpal bone, right hand, initial encounter for closed fracture (principal); M25.571 Pain in right ankle and joints of right foot; M25.572 Pain in left ankle and joints of left foot; M54.5 Low back pain; M54.6 Pain in thoracic spine; M54.2 Cervicalgia; E11.9 Type 2 diabetes mellitus without complications; I10 Essential (primary) hypertension; J45.909 Unspecified asthma, uncomplicated; M10.9 Gout, unspecified; E66.9 Obesity, unspecified; Z68.44 Body mass index [BMI] 60.0-69.9, adult; Z91.040 Latex allergy status; Z88.5 Allergy status to narcotic agent; W01.0XXA Fall on same level from slipping, tripping and stumbling without subsequent striking against object, initial encounter; Y93.89 Activity, other specified; Y92.89 Other specified places as the place of occurrence of the external cause; Y99.8 Other external cause status
CPT/HCPCS: 29125; 72125; 72128; 72131; 73130; 73610; 99284

== ENCOUNTER 2020-09-23 20:37 | Emergency (ER) | payer OTHER ==
[~2020-09-23] VITALS: Ht 165.1 cm; Wt 140.0 kg
[~2020-09-23 20:37] MED LIST changes: -CIPR500T PO; +CIPR500T2 PO; -LISI-334 PO; +LISI20TA18 PO
[2020-09-23 21:50] VITALS: BP 150/81
--- NOTE | 2020-09-23 22:56 | PHYS DOC ---
Past Medical History Past Medical History: Asthma, Diabetes-Type II, Hypertension, Other Additional Past Medical Histor: Gout, obesity Past Surgical History: Cholecystectomy Smoking Status: Never Smoker Alcohol Use: None Drug Use: None General Adult EDM: Chief Complaint: UPPER EXTREMITY INJURY HPI: HPI: Patient is a 40 year old female who presented to the ER TODAY for evaluation of right hand pain. Patient felt 3 days ago and hit her right hand on the ground. Patient denied any other injured. Review of Systems: Review of Systems: Constitutional: Denies fever or chills. [] Eyes: Denies change in visual acuity. [] HENT: Denies nasal congestion or sore throat. [] Respiratory: Denies cough or shortness of breath. [] Cardiovascular: Denies chest pain or edema. [] GI: Denies abdominal pain, nausea, vomiting, bloody stools or diarrhea. [] : Denies dysuria. [] Musculoskeletal: Positive for right hand pain. Integument: Denies rash. [] Neurologic: Denies headache, focal weakness or sensory changes. [] Endocrine: Denies polyuria or polydipsia. [] Lymphatic: Denies swollen glands. [] Psychiatric: Denies depression or anxiety. [] Heart Score: C/O Chest Pain: N/A Risk Factors: Risk Factors: DM, Current or recent (<one month) smoker, HTN, HLP, family history of CAD, obesity. Risk Scores: Score 0 - 3: 2.5% MACE over next 6 weeks - Discharge Home Score 4 - 6: 20.3% MACE over next 6 weeks - Admit for Clinical Observation Score 7 - 10: 72.7% MACE over next 6 weeks - Early Invasive Strategies Allergies: Allergies: Allergies Coded Allergies Type Severity Reaction Last Updated Verified Latex, Natural Rubber Allergy Intermediate Rash 04/03/16 Yes oxycodone Allergy Intermediate Hives 04/03/16 Yes Physical Exam: PE: Constitutional: Well developed, well nourished, no acute distress, non-toxic appearance. [] Neck: Normal range of motion, no tenderness, supple, no stridor. [] Abdomen: Bowel sounds normal, soft, no tenderness, no masses, no pulsatile masses. [] Skin: Warm, dry, no erythema, no rash. [] Back: No tenderness, no CVA tenderness. [] Extremities: RIGHT HAND IS MILDLY SWOLLEN, TENDER TO PALPATION, NO DEFORMITY NOTED. Neurologic: Alert and oriented X 3, normal motor function, normal sensory function, no focal deficits noted. [] Psychologic: Affect normal, judgement normal, mood normal. [] EKG: EKG: [] Radiology/Procedures: Radiology/Procedures: [][facility] [address] [place] [address] IMAGING REPORT Signed PATIENT: CARINE DELACRUZ LACCOUNT: [id number] : 1980 LOCATION: ER AGE: 40 SEX: F EXAM STATUS: DEP ER ORD. PHYSICIAN: KALEIGH BARRERA DO REASON: FELL 2 DAYS AGO, RIGHT HAND AND WRIST PAIN PROCEDURE: HAND RIGHT 3V Exam: Right hand 3 views. Right wrist 3 views INDICATION: Fall 2 days ago TECHNIQUE: Frontal, lateral and oblique views of the right wrist Comparisons: Fall 2 days ago FINDINGS: Hand: Bone mineralization is normal. No acute or healed fractures. Mild soft tissue swelling noted at the level of the metacarpals. Joint spaces are well- maintained. Wrist: Bone mineralization is normal. No acute or healed fractures. Mild soft tissue swelling surrounding the right wrist. Joint spaces are well-maintained. IMPRESSION: Mild soft tissue swelling at the wrist without underlying osseous abnormality identified at the right hand or right wrist. Electronically signed by: Acacia Levine MD (09/23/2020 10:59 PM) [facility] DICTATED and SIGNED BY: ACACIA LEVINE MD DATE: 09/23/20 [id number] 0 Course & Med Decision Making: Course & Med Decision Making Pertinent Labs and Imaging studies reviewed. (See chart for details) [] Dragon Disclaimer: Dragon Disclaimer: This electronic medical record was generated, in whole or in part, using a voice recognition dictation system. Departure Departure Impression: Primary Impression: Sprain of right wrist Disposition: HOME / SELF CARE / HOMELESS Condition: STABLE Referrals: COLIN PAN MD (PCP) follow up with your doctor in 10 days for repeat xray Patient Instructions: Wrist Sprain with Rehab[facility] Additional Instructions: Thank you for visiting our Emergency Department. We appreciate you trusting us with your care. If any additional problems come up don't hesitate to return to visit us. Please follow up with your primary care provider so they can plan additional care if needed and know about the problem that you had. If symptoms worsen come back to the Emergency Department. Any concerning symptoms that start such as chest pain, shortness of air, weakness or numbness on one side of the body, running high fevers or any other concerning symptoms return to the ER. KALEIGH BARRERA DO Sep 23, 2020 22:56
--- NOTE | 2020-09-23 23:01 | RAD ---
Exam: Right hand 3 views. Right wrist 3 views INDICATION: Fall 2 days ago TECHNIQUE: Frontal, lateral and oblique views of the right wrist Comparisons: Fall 2 days ago FINDINGS: Hand: Bone mineralization is normal. No acute or healed fractures. Mild soft tissue swelling noted at the l evel of the metacarpals. Joint spaces are well-maintained. Wrist: Bone mineralization is normal. No acute or healed fractures. Mild soft tissue swelling surrounding th e right wrist. Joint spaces are well-maintained. IMPRESSION: Mild soft tissue swelling at the wrist without underlying osseous abnormality identified at the right hand or right wrist. Electronically signed by: Acacia Durant MD (09/23/2020 10:59 PM) [facility]
== END 2020-09-23 22:59 | disposition home or self-care (01) ==
LOC: ER 20:37
DX: S63.591A Other specified sprain of right wrist, initial encounter (principal); M79.641 Pain in right hand; J45.909 Unspecified asthma, uncomplicated; E11.9 Type 2 diabetes mellitus without complications; I10 Essential (primary) hypertension; Z91.040 Latex allergy status; Z88.5 Allergy status to narcotic agent; Z90.49 Acquired absence of other specified parts of digestive tract; X58.XXXA Exposure to other specified factors, initial encounter; Y93.89 Activity, other specified; Y92.89 Other specified places as the place of occurrence of the external cause; Y99.8 Other external cause status
CPT/HCPCS: 29125; 73110; 73130; 99284

== ENCOUNTER 2020-12-07 08:21 | Emergency (ER) | payer OTHER ==
[~2020-12-07] VITALS: Ht 165.1 cm; Wt 171.8 kg
[2020-12-07 08:46] LABS: BASO % 0 % (0-3); EOS # 0.2 x10^3/uL (0.0-0.7); EOS % 2 % (0-3); HEMATOCRIT 37.4 % (36.0-47.0); HEMOGLOBIN 12.2 g/dL (12.0-15.5); LYMPH # 2.7 x10^3/uL (1.0-4.8); LYMPH % 23 % (24-48); MEAN CORPUSCULAR HEMOGLOBIN 28 pg (25-35); MEAN CORPUSCULAR HGB CONC 33 g/dL (31-37); MEAN CORPUSCULAR VOLUME 86 fL (79-100); MONO % 9 % (0-9); NEUT # 7.7 x10^3/uL (1.8-7.7); NEUT % 66 % (31-73); PLATELET COUNT 293 x10^3/uL (140-400); RED BLOOD COUNT 4.37 x10^6/uL (3.50-5.40); RED CELL DISTRIBUTION WIDTH 15.2 % (11.5-14.5); WHITE BLOOD COUNT 11.7 x10^3/uL (4.0-11.0)
--- NOTE | 2020-12-07 08:51 | RAD ---
EXAMINATION: Chest radiograph. VIEWS: Single view COMPARISON: 08/31/2019 INDICATION:40 years, Female, chest pain. FINDINGS: Normal cardiomediastinal silhouette. No focal consolidation. No pleural effusion or pneumothorax. No acute osseous process. IMPRESSION: No acute cardiopulmonary process. Electronically signed by: Jayy Larry MD (12/07/2020 8:49 AM) [id number]
[2020-12-07 08:54] LABS: CALCIUM 8.7 mg/dL (8.5-10.1); CREATININE 0.8 mg/dL (0.6-1.0); GFR 78.7; POTASSIUM 3.8 mmol/L (3.5-5.1)
[2020-12-07 09:00] LABS: ALBUMIN 3.1 g/dL (3.4-5.0); ALBUMIN/GLOBULIN RATIO 0.8 (1.0-1.7); MAGNESIUM 2.1 mg/dL (1.8-2.4); TOTAL BILIRUBIN 0.4 mg/dL (0.2-1.0); TOTAL PROTEIN 7.2 g/dL (6.4-8.2)
[2020-12-07] MEDS ORDERED: IOHEXOL 350 MG/ML 100 ML VIAL. IV ONE (09:15)
[2020-12-07] MEDS ORDERED: KETOROLAC 30 MG/ML VIAL. IVP ONE (09:15)
[2020-12-07] MEDS ORDERED: CONTRAST GIVEN. MC PRN (09:30)
[2020-12-07 10:00] VITALS: BP 152/77
[2020-12-07] MEDS ORDERED: MORPHINE SULFATE 4 MG/ML INJ. IV ONE (10:15)
--- NOTE | 2020-12-07 10:32 | RAD ---
EXAMINATION: CTA Chest With IV contrast INDICATION:40 years, Female, chest pain, shortness of breathe, evaluate for pulmonary embolism.. COMPARISON: 02/25/2007. TECHNIQUE: Spiral CTA was obtained from the jugular notch through the posterior costophrenic recess. 3-D MIPS, sagittal and coronal reformats were obtained. Exposure: One or more of the following individualized dose reduction techniques were utilized for thi s examination: 1. Automated exposure control 2. Adjustment of the mA and/or kV according to patient size 3. Use of iterative reconstruction technique. FINDINGS: LUNGS/PLEURA: Central airways are patent. No focal consolidation, pleural effusion or pneumothorax. B ibasilar subsegmental atelectasis. Sub-5 mm pulmonary nodules in both upper lobes and right middle lo bes, for example 3 mm nodule in the basilar segment of right upper lobe (series 9 image 193). Calcifi ed granuloma in the right lung base. MEDIASTINUM: No pathologic mediastinal or hilar adenopathy. Calcified right hilar lymph nodes The tho racic aorta and pulmonary arteries are normal in caliber. This study is not diagnostic for pulmonary embolism due to contrast bolus timing and patient's body habitus The heart is normal in size. No guy cardial effusion. Mild calcified coronary atherosclerosis. The visualized thyroid and the esophagus a re unremarkable. AXILLA/SOFT TISSUE: No supraclavicular or axillary adenopathy. Regional soft tissues are within jewel l limits. UPPER ABDOMEN: The visualized upper abdomen appears unremarkable, within limitation of the exam. BONES: No evidence of acute fractures or aggressive osseous lesions. IMPRESSION: 1. The study is not diagnostic for pulmonary embolism due to contrast bolus timing and patient's body habitus. However, no discrete emboli identified in the pulmonary trunk or proximal main pulmonary ar teries. 2. Few scattered sub-5 mm pulmonary nodules. Fleischner Society guidelines for management of incidental pulmonary nodule (Radiology 2017): Multipl e solid nodules < 6 mm: LOW-RISK patient (minimal or absent history of smoking and other known risk factors): No routine foll ow-up HIGH-RISK patient (history of smoking or other known risk factors): Optional CT at 12 months. Electronically signed by: Jayy Larry MD (12/07/2020 10:29 AM) [id number]
--- NOTE | 2020-12-07 11:17 | PHYS DOC ---
Past Medical History Past Medical History: Asthma, Diabetes-Type II, Hypertension, Other Additional Past Medical Histor: Gout, obesity,HIRTUISM Past Surgical History: Cholecystectomy Smoking Status: Never Smoker Alcohol Use: None Drug Use: None General Adult EDM: Chief Complaint: CHEST PAIN HPI: HPI: Patient is a 40 year old female who was brought here by EMS from home due to sharp chest pain on the left side started yesterday morning. Patient complained of pain with cough or palpation of her chest. Patient denies any nausea vomiting, no fever. Patient was not vaccinated for COVID-19. Patient says her pain is worse when she did sit up or move her left shoulder cough. Patient says she was recently started on phentermine for weight loss. She does have a history of diabetic and asthma. Patient had no previous history of coronary artery disease. She denies any recent travel or operation. Review of Systems: Review of Systems: Constitutional: Denies fever or chills. [] Eyes: Denies change in visual acuity. [] HENT: Denies nasal congestion or sore throat. [] Respiratory: Denies cough or shortness of breath. [] Cardiovascular: Positive for chest pain, no edema GI: Denies abdominal pain, nausea, vomiting, bloody stools or diarrhea. [] : Denies dysuria. [] Musculoskeletal: Denies back pain or joint pain. [] Integument: Denies rash. [] Neurologic: Denies headache, focal weakness or sensory changes. [] Endocrine: Denies polyuria or polydipsia. [] Lymphatic: Denies swollen glands. [] Psychiatric: Denies depression or anxiety. [] Heart Score: C/O Chest Pain: Yes HEART Score for Chest Pain: HEART Score for Chest Pain Response (Comments) Value History Slighlty/Non-Suspicious 0 ECG Normal 0 Age < 45 0 Risk Factors 1 or 2 Risk Factors 1 Troponin < Normal Limit 0 Total 1 Risk Factors: Risk Factors: DM, Current or recent (<one month) smoker, HTN, HLP, family history of CAD, obesity. Risk Scores: Score 0 - 3: 2.5% MACE over next 6 weeks - Discharge Home Score 4 - 6: 20.3% MACE over next 6 weeks - Admit for Clinical Observation Score 7 - 10: 72.7% MACE over next 6 weeks - Early Invasive Strategies Current Medications: Current Medications Medications (Trade) Dose Ordered Sig/Jalyn Start Time Stop Time Status Last Admin Dose Admin Info (CONTRAST GIVEN -- Rx MONITORING) 1 each PRN DAILY PRN 12/07/20 09:30 12/09/20 09:29 Iohexol (Omnipaque 350 Mg/ml) 100 ml 1X ONCE 12/07/20 09:15 12/07/20 09:18 DC 12/07/20 09:50 100 ML Ketorolac Tromethamine (Toradol 30mg Vial) 30 mg 1X ONCE 12/07/20 09:15 12/07/20 09:16 DC 12/07/20 09:22 30 MG Morphine Sulfate (Morphine Sulfate) 4 mg 1X ONCE 12/07/20 10:15 12/07/20 10:16 DC 12/07/20 10:26 4 MG Allergies: Allergies: Allergies Coded Allergies Type Severity Reaction Last Updated Verified Latex, Natural Rubber Allergy Intermediate Rash 04/03/16 Yes Physical Exam: PE: Constitutional: Well developed, well nourished, no acute distress, non-toxic appearance. morbidly obese. HENT: Normocephalic, atraumatic, bilateral external ears normal, oropharynx moist, no oral exudates, nose normal. [] Eyes: PERRLA, EOMI, conjunctiva normal, no discharge. [] Neck: Normal range of motion, no tenderness, supple, no stridor. [] Cardiovascular:Heart rate regular rhythm, no murmur. chest pain is reproducible to palpation, left side chest is tender to palpation. Lungs & Thorax: Bilateral breath sounds clear to auscultation [] Abdomen: Bowel sounds normal, soft, no tenderness, no masses, no pulsatile masses. [] Skin: Warm, dry, no erythema, no rash. [] Back: No tenderness, no CVA tenderness. [] Extremities: No tenderness, no cyanosis, no clubbing, ROM intact, no edema. [] Neurologic: Alert and oriented X 3, normal motor function, normal sensory function, no focal deficits noted. [] Psychologic: Affect normal, judgement normal, mood normal. [] Current Patient Data: Labs: Laboratory Tests Test 12/07/20 08:27 White Blood Count 11.7 x10^3/uL (4.0-11.0) H Red Blood Count 4.37 x10^6/uL (3.50-5.40) Hemoglobin 12.2 g/dL (12.0-15.5) Hematocrit 37.4 % (36.0-47.0) Mean Corpuscular Volume 86 fL (79-100) Mean Corpuscular Hemoglobin 28 pg (25-35) Mean Corpuscular Hemoglobin Concent 33 g/dL (31-37) Red Cell Distribution Width 15.2 % (11.5-14.5) H Platelet Count 293 x10^3/uL (140-400) Neutrophils (%) (Auto) 66 % (31-73) Lymphocytes (%) (Auto) 23 % (24-48) L Monocytes (%) (Auto) 9 % (0-9) Eosinophils (%) (Auto) 2 % (0-3) Basophils (%) (Auto) 0 % (0-3) Neutrophils # (Auto) 7.7 x10^3/uL (1.8-7.7) Lymphocytes # (Auto) 2.7 x10^3/uL (1.0-4.8) Monocytes # (Auto) 1.0 x10^3/uL (0.0-1.1) Eosinophils # (Auto) 0.2 x10^3/uL (0.0-0.7) Basophils # (Auto) 0.0 x10^3/uL (0.0-0.2) Sodium Level 143 mmol/L (136-145) Potassium Level 3.8 mmol/L (3.5-5.1) Chloride Level 105 mmol/L (98-107) Carbon Dioxide Level 27 mmol/L (21-32) Anion Gap 11 (6-14) Blood Urea Nitrogen 10 mg/dL (7-20) Creatinine 0.8 mg/dL (0.6-1.0) Estimated GFR (Cockcroft-Gault) 78.7 BUN/Creatinine Ratio 13 (6-20) Glucose Level 126 mg/dL (70-99) H Calcium Level 8.7 mg/dL (8.5-10.1) Magnesium Level 2.1 mg/dL (1.8-2.4) Total Bilirubin 0.4 mg/dL (0.2-1.0) Aspartate Amino Transferase (AST) 15 U/L (15-37) Alanine Aminotransferase (ALT) 15 U/L (14-59) Alkaline Phosphatase 96 U/L (46-116) Troponin I Quantitative < 0.017 ng/mL (0.000-0.055) OL-Pfj-Y-Type Natriuretic Peptide 37 pg/mL (0-124) Total Protein 7.2 g/dL (6.4-8.2) Albumin 3.1 g/dL (3.4-5.0) L Albumin/Globulin Ratio 0.8 (1.0-1.7) L Lipase 91 U/L (73-393) Laboratory Tests 12/07/20 08:27 Laboratory Tests 12/07/20 08:27 Vital Signs: Vital Signs Date Time Temp Pulse Resp B/P (MAP) Pulse Ox O2 Delivery O2 Flow Rate FiO2 12/07/20 10:26 Room Air 12/07/20 08:21 98.1 90 20 139/87 (104) 100 98.1 EKG: EKG: EKG was done at 833, heart rate 90 bpm, normal sinus rhythm, no ST segment elevation. Radiology/Procedures: Radiology/Procedures: [][facility] [address] [place] [address] IMAGING REPORT Signed PATIENT: CARINE DELACRUZ LACCOUNT: [id number] : 1980 LOCATION: ER AGE: 40 SEX: F EXAM STATUS: REG ER ORD. PHYSICIAN: KALEIGH BARRERA DO REASON: CHEST PAIN, SOA, EVALUATE FOR PE PROCEDURE: CT ANGIOGRAPHY CHEST EXAMINATION: CTA Chest With IV contrast INDICATION:40 years, Female, chest pain, shortness of breathe, evaluate for pulmonary embolism.. COMPARISON: 02/25/2007. TECHNIQUE: Spiral CTA was obtained from the jugular notch through the posterior costophrenic recess. 3-D MIPS, sagittal and coronal reformats were obtained. Exposure: One or more of the following individualized dose reduction techniques were utilized for this examination: 1. Automated exposure control 2. Adjustment of the mA and/or kV according to patient size 3. Use of iterative reconstruction technique. FINDINGS: LUNGS/PLEURA: Central airways are patent. No focal consolidation, pleural effusion or pneumothorax. Bibasilar subsegmental atelectasis. Sub-5 mm pulmonary nodules in both upper lobes and right middle lobes, for example 3 mm nodule in the basilar segment of right upper lobe (series 9 image 193). Calcified granuloma in the right lung base. MEDIASTINUM: No pathologic mediastinal or hilar adenopathy. Calcified right hilar lymph nodes The thoracic aorta and pulmonary arteries are normal in caliber. This study is not diagnostic for pulmonary embolism due to contrast bolus timing and patient's body habitus The heart is normal in size. No pericardial effusion. Mild calcified coronary atherosclerosis. The visualized thyroid and the esophagus are unremarkable. AXILLA/SOFT TISSUE: No supraclavicular or axillary adenopathy. Regional soft tissues are within normal limits. UPPER ABDOMEN: The visualized upper abdomen appears unremarkable, within limitation of the exam. BONES: No evidence of acute fractures or aggressive osseous lesions. IMPRESSION: 1. The study is not diagnostic for pulmonary embolism due to contrast bolus timing and patient's body habitus. However, no discrete emboli identified in the pulmonary trunk or proximal main pulmonary arteries. 2. Few scattered sub-5 mm pulmonary nodules. Fleischner Society guidelines for management of incidental pulmonary nodule (Radiology 2017): Multiple solid nodules < 6 mm: LOW-RISK patient (minimal or absent history of smoking and other known risk factors): No routine follow-up HIGH-RISK patient (history of smoking or other known risk factors): Optional CT at 12 months. Electronically signed by: Rudy Larry MD (12/07/2020 10:29 AM) [id number] DICTATED and SIGNED BY: RUDY LARRY MD DATE: 12/07/20 [id number] 0 Course & Med Decision Making: Course & Med Decision Making Pertinent Labs and Imaging studies reviewed. (See chart for details) Patient is a 40-year-old female who presented to ER for evaluation of left-sided sharp chest pain since yesterday morning, the pain associated with no nausea vomiting, no sweating, no trouble breathing. Patient said pain get worse with cough or any Movement of her shoulder or her chest area, denies any injury. Work-up in the ER included lab and chest x-ray with EKG all came back normal so far. CT scan of her chest did not show any evidence of obvious blood clot or any evidence of pneumonia or dissection. sHe was given pain medication in the ED and she felt much better.. Patient had this chest pain for more than 24 hours, chest pain was sharp and reproducible to palpation, is unlikely cardiac in nature. Patient will be discharged home, due to her obesity and risk factor patient need to follow-up with the fire loss prevention engineer for outpatient evaluation and treatment. Patient was amenable to plan of care. Dragon Disclaimer: Dragon Disclaimer: This electronic medical record was generated, in whole or in part, using a voice recognition dictation system. Departure Departure Impression: Primary Impression: Chest pain Disposition: HOME / SELF CARE / HOMELESS Condition: STABLE Referrals: COLIN PAN MD (PCP) EILEEN SUGGS MD Please follow-up with THIS fire loss prevention engineer for outpatient evaluation next week. Patient Instructions: Chest Pain (Nonspecific) Additional Instructions: Thank you for visiting our Emergency Department. We appreciate you trusting us with your care. If any additional problems come up don't hesitate to return to visit us. Please follow up with your primary care provider so they can plan additional care if needed and know about the problem that you had. If symptoms worsen come back to the Emergency Department. Any concerning symptoms that start such as chest pain, shortness of air, weakness or numbness on one side of the body, running high fevers or any other concerning symptoms return to the ER. KALEIGH BARRERA DO Dec 07, 2020 11:16
--- NOTE | 2020-12-07 15:07 | EKG ---
[facility] [address] [place] [address] Test Date: 2020-12-07 Test Time: 08:27:57 Pat Name: CARINE DELACRUZ Department: Room: Gender: F Manager Lan: : 1980 Requested By: KALEIGH BARRERA Order Number: [id number] Reading MD: Measurements Intervals [place] Rate: 90 P: 118 OK: 146 QRS: 150 QRSD: 88 T: 161 QT: 360 QTc: 444 Interpretive Statements SINUS RHYTHM ABNORMAL RIGHT AXIS DEVIATION QRS(T) CONTOUR ABNORMALITY CONSISTENT WITH ANTEROSEPTAL INFARCT AGE UNDETERMINED CONSISTENT WITH HIGH LATERAL INFARCT AGE UNDETERMINED CONSIDER INFERIOR INFARCT ABNORMAL ECG RI6.01 No previous ECG available for comparison
--- NOTE | 2020-12-07 15:08 | EKG ---
[facility] [address] [place] [address] Test Date: 2020-12-07 Test Time: 10:31:22 Pat Name: CARINE DELACRUZ Department: Room: Gender: F Network Analyst: : 1980 Requested By: KALEIGH BARRERA Order Number: [id number] Reading MD: Measurements Intervals [place] Rate: 92 P: 14 NM: 128 QRS: 18 QRSD: 90 T: 21 QT: 368 QTc: 460 Interpretive Statements SINUS RHYTHM QRS(T) CONTOUR ABNORMALITY CONSISTENT WITH ANTEROSEPTAL INFARCT PROBABLY OLD ABNORMAL ECG RI6.01 Compared to ECG 12/07/2020 08:27:57 Right-axis deviation no longer present Myocardial infarct finding still present
== END 2020-12-07 10:58 | disposition home or self-care (01) ==
LOC: ER 08:21
DX: R07.89 Other chest pain (principal); R05 Cough; J45.909 Unspecified asthma, uncomplicated; E11.9 Type 2 diabetes mellitus without complications; I10 Essential (primary) hypertension; E66.9 Obesity, unspecified; Z68.44 Body mass index [BMI] 60.0-69.9, adult; Z90.49 Acquired absence of other specified parts of digestive tract; Z91.040 Latex allergy status
CPT/HCPCS: 36415; 71045; 71275; 80053; 83690; 83735; 83880; 84484; 85025; 93005; 96374; 96375; 99285; J1885; J2270; Q9967